=== PATIENT | female | born 1980 | race Caucasian/White ===

== ENCOUNTER → 2016-08-25 | Outpatient (CLI) | payer BC | LOC: LAB 13:13 | PROVIDERS: ATTEND Obstetrics & Gynecology | DX: O20.9 Hemorrhage in early pregnancy, unspecified (principal) | CPT/HCPCS: 36415; 84702 ==

== ENCOUNTER → 2016-09-29 | Outpatient (CLI) | payer BC | LOC: LAB 10:01 | PROVIDERS: ATTEND Obstetrics & Gynecology | DX: Z32.01 Encounter for pregnancy test, result positive (principal); Z87.59 Personal history of other complications of pregnancy, childbirth and the puerperium | CPT/HCPCS: 36415; 84702 ==

== ENCOUNTER → 2017-01-15 | Outpatient (CLI) | payer BC ==
--- NOTE | 2017-01-15 12:01 | Diagnostic Imaging Report ---
INDICATION: Size and dates. TECHNIQUE: Multiple real-time grayscale images were obtained over the gravid uterus. COMPARISON: None. FINDINGS: There is a single living intrauterine in variable presentation. There is normal volume of amniotic fluid. Placenta is fundal. There is no previa. The anatomical survey is unremarkable. The heart rate is 140 beats per minute and regular. Cervical length is 5.7 cm. The biometry correlates with a gestational age of 21 weeks 2 days. IMPRESSION: Single living intrauterine with sonographically estimated gestational age of 21 weeks 2 days and an estimated date of confinement of 05/26/2017. Biometrical measurements are as follows: Biparietal 5.06 cm, age 21 weeks 3 days. Head circumference 18.69 cm, age 21 weeks 1 days. Abdominal circumference 16.43 cm, age 21 weeks 4 days. Femur length 3.36 cm, age 20 weeks 4 days. Sonographic estimate age: 21 weeks 2 days. Sonographic estimated date of delivery: 05/26/2017. Estimated Weight: 396 gm (+/- 58 gm). LMP percentile: 94%. heart rate: 140 beats per minute. number: 1 of 1. Dictated by: Dictated on workstation # [id number]
== END ==
LOC: RAD 10:24
PROVIDERS: ATTEND Obstetrics & Gynecology
DX: Z36 Encounter for antenatal screening of mother (principal); Z3A.21 21 weeks gestation of pregnancy
CPT/HCPCS: 76805

== ENCOUNTER 2017-06-02 19:00 | Inpatient (IN) | payer BC ==
[~2017-06-02] VITALS: Ht 162.6 cm; Wt 87.1 kg
--- OUTSIDE RECORDS SUMMARY | 2017-06-02 19:40 | XMS REPORT | Continuity of Care Document ---
Author Author [facility] Organization [facility] Address Unknown Phone Unavailable Allergies Active Description Code Type Severity Reaction Onset Reported/Identified Relationship to Patient Clinical Status Yes No Allergy Information Available [id number] Drug Allergy Unknown N/A 2014 Medications There is no data. Problems Date Dx Coded Attending Type Code Diagnosis Diagnosed By 09/28/2014 Ot 527.5 11/05/2014 YON REYES DO Ot 789.34 08/25/2016 YON REYES DO Ot 789.34 ABDOMINAL/PELVIC SWELLING,MASS/LUMP,LFT 08/25/2016 YON REYES DO Ot 789.34 ABDOMINAL/PELVIC SWELLING,MASS/LUMP,LFT 08/29/2016 FENECH DO, NOHELIA S Ot O20.9 HEMORRHAGE IN EARLY , UNSPECIFI 09/07/2016 FENECH DO, NOHELIA S Ot O20.9 HEMORRHAGE IN EARLY , UNSPECIFI 10/01/2016 FENECH DO, NOHELIA S Ot Z32.01 ENCOUNTER FOR TEST, RESULT POS 10/01/2016 FENECH DO, NOHELIA S Ot Z87.59 PERSONAL HISTORY OF COMP OF PREG, CHLDBR 10/04/2016 FENECH DO, NOHELIA S Ot Z32.01 ENCOUNTER FOR TEST, RESULT POS 10/04/2016 FENECH DO, NOHELIA S Ot Z87.59 PERSONAL HISTORY OF COMP OF PREG, CHLDBR 10/05/2016 FENECH DO, NOHELIA S Ot Z32.01 ENCOUNTER FOR TEST, RESULT POS 10/05/2016 FENECH DO, NOHELIA S Ot Z87.59 PERSONAL HISTORY OF COMP OF PREG, CHLDBR 10/16/2016 FENECH DO, NOHELIA S Ot Z32.01 ENCOUNTER FOR TEST, RESULT POS 10/16/2016 FENECH DO, NOHELIA S Ot Z87.59 PERSONAL HISTORY OF COMP OF PREG, CHLDBR 01/11/2017 RONEL REYES DONT L Ot 789.34 ABDOMINAL/PELVIC SWELLING,MASS/LUMP,LFT 01/11/2017 NOHELIA HENAO DO Ot O20.9 HEMORRHAGE IN EARLY , UNSPECIFI 01/11/2017 JULIANO BYRD, NOHELIA Benton Ot Z32.01 ENCOUNTER FOR TEST, RESULT POS 01/11/2017 JULIANO BYRD, NOHELIA Benton Ot Z87.59 PERSONAL HISTORY OF COMP OF PREG, CHLDBR 01/15/2017 YON REYES DO Ot 789.34 ABDOMINAL/PELVIC SWELLING,MASS/LUMP,LFT 01/15/2017 NOHELIA HENAO DO Ot O20.9 HEMORRHAGE IN EARLY , UNSPECIFI 01/15/2017 JULIANO BYRD, NOHELIA Benton Ot Z32.01 ENCOUNTER FOR TEST, RESULT POS 01/15/2017 NOHELIA HENAO DO Ot Z87.59 PERSONAL HISTORY OF COMP OF PREG, CHLDBR 01/16/2017 JULIANO BYRD, NOHELIA S Ot Z36 ENCOUNTER FOR SCREENING OF MOT 01/16/2017 NOHELIA HENAO DO Ot Z3A.21 21 WEEKS GESTATION OF 01/23/2017 JULIANO BYRD NOHELIA S Ot Z36 ENCOUNTER FOR SCREENING OF MOT 01/23/2017 JULIANO DO, NOHELIA Benton Ot Z3A.21 21 WEEKS GESTATION OF 01/30/2017 JULIANO BYRD, NOHELIA S Ot Z36 ENCOUNTER FOR SCREENING OF MOT 01/30/2017 JULIANO BYRD, NOHELIA Benton Ot Z3A.21 21 WEEKS GESTATION OF Procedures There is no data. Results Test Result Range Serum or plasma choriogonadotropin measurement (units/volume) - 09/29/16 10:14 Serum or plasma choriogonadotropin measurement (units/volume) 805 m[ iU]/mL <5 Encounters ACCT No. Visit Date/Time Discharge Status Pt. Type Provider Facility Loc./Unit Complaint [id number] 01/15/2017 10:24:00 01/15/2017 23:59:59 CLS Outpatient NOHELIA HENAO DO [facility] RAD ANATOMY SCAN [id number] 09/29/2016 10:01:00 09/29/2016 23:59:59 CLS Outpatient JULIANO BYRD NOHELIA Benton [facility] LAB POSITIVE PREGNANCE TEST, MISCARRIAGE WITHIN YR [id number] 08/25/2016 13:13:00 08/25/2016 23:59:59 CLS Outpatient JULIANO BYRD NOHELIA Benton [facility] LAB BLEEDING IN EARLY [id number] 09/28/2014 14:30:00 09/28/2014 23:59:59 CLS Outpatient YON REYES DO [facility] RAD MASS LT LOWER ABD [id number] 06/02/2017 19:25:00 ACT Inpatient NOHELIA HENAO DO [facility] LDRP INDUCTION [id number] 09/28/2014 14:49:00 Document Registration [id number] 09/28/2014 14:49:00 Document Registration [id number] 10/13/2010 10:01:00 Document Registration
[2017-06-02 19:42] VITALS: BP 132/84
[2017-06-02] MEDS ORDERED: LACTATED RINGERS 1,000 ML IV SCH (20:44)
[2017-06-02] MEDS ORDERED: TERBUTALINE INJ 1 MG/ML (BRETHINE) AMP SC PRN (20:45)
[2017-06-02] MEDS ORDERED: MISOPROSTOL 100 MCG (CYTOTEC) TAB PO ONE (20:45)
[2017-06-02] MEDS: D5 LR IV SOLUTION 1,000 ML IV SCH (20:53)
[2017-06-02 20:55] LABS: BASOPHILS % (AUTO) 0 % (0-10); EOSINOPHILS % (AUTO) 0 % (0-10); HEMATOCRIT 33 % (35-52); HEMOGLOBIN 11.3 G/DL (11.5-16.0); LYMPHOCYTES # (AUTO) 1.6 X 10^3 (1.0-4.0); LYMPHOCYTES % (AUTO) 18 % (12-44); MEAN CORPUSCULAR HEMOGLOBIN 33 PG (25-34); MEAN CORPUSCULAR HGB CONC 34 G/DL (32-36); MEAN CORPUSCULAR VOLUME 98 FL (80-99); MEAN PLATELET VOLUME 11.3 FL (7.4-10.4); MONOCYTES # (AUTO) 0.6 X 10^3 (0.0-1.0); MONOCYTES % (AUTO) 7 % (0-12); NEUTROPHILS # (AUTO) 6.7 X 10^3 (1.8-7.8); NEUTROPHILS % (AUTO) 75 % (42-75); PLATELET COUNT 249 10^3/uL (130-400); RED BLOOD COUNT 3.39 10^6/uL (4.35-5.85); RED CELL DISTRIBUTION WIDTH 13.3 % (10.0-14.5); WHITE BLOOD COUNT 8.9 10^3/uL (4.3-11.0)
[2017-06-02] MEDS ORDERED: HYDROmorphone (DILAUDID) 2 MG/ML VIAL IVP ONE (21:00)
[2017-06-02 21:04] VITALS: BP 116/71
[2017-06-02 21:34] VITALS: BP 124/75
[2017-06-02 22:04] VITALS: BP 107/64
[2017-06-02 22:27] VITALS: BP 118/77
[2017-06-02] MEDS ORDERED: AMPICILLIN INJECTION 2,000 MG in NS (IVPB) 50 ML IV SCH (23:14)
[2017-06-02] MEDS ORDERED: AMPICILLIN 2000 MG INJECTION (IM/IV) ONE (23:19)
[2017-06-02] MEDS ORDERED: NS (IVPB) 50 ML ONE (23:20)
[2017-06-02 23:27] VITALS: BP 125/78
[2017-06-02] MEDS ORDERED: ACETAMINOPHEN 500 MG TAB (TYLENOL) PO PRN (23:30)
[2017-06-02] MEDS ORDERED: FERR-84 PO (23:57)
[2017-06-02] MEDS ORDERED: PREN-142 PO (23:57)
[2017-06-03] VITALS (52 sets, daily range): BP systolic 95–139; BP diastolic 51–86
[2017-06-03] MEDS ORDERED: MISOPROSTOL 100 MCG (CYTOTEC) TAB PO SCH (00:45)
[2017-06-03] MEDS: CATHETER FLUSH 10 ML SYR IV SCH ×3 (03:28→22:11)
[2017-06-03] MEDS: AMPICILLIN INJECTION 1,000 MG in NS (IVPB) 50 ML IV SCH ×4 (03:32→15:27)
[2017-06-03] MEDS: D5 LR IV SOLUTION 1,000 ML IV SCH ×2 (05:53→14:57)
[2017-06-03] MEDS ORDERED: OXYTOCIN/NORMAL SALINE 500 ML IV SCH (07:30)
[2017-06-03] MEDS ORDERED: SUFENTA 0.6MCG/ML BUPIVA 0.125 100 ML ONE (08:19)
--- NOTE | 2017-06-03 08:34 | History & Physical-OB ---
OB - Chief Complaint & HPI Date/Time Date of Admission: Date of Admission: Jun 02, 2017 at 7:25 pm Time Seen by Provider: 08:25 Chief Complaint/History OB-Reason for Admission/Chief: Induction of Labor Hx : 2 Hx Para: 0 Expected Date of Delivery: Jun 04, 2017 Gestational Age in Weeks: 39 Gestational Age in Days: 5 Other reason for admission: Induction of labor at <40 weeks due to AMA Admission Nurse Assessment Rev: Yes History of Labs A pos Antibody neg RI RPR NR HBsAg NR HIV NR GC neg GBS urine culture + in 1st trimester Allergies and Home Medications Allergies Coded Allergies: No Allergy Information Available (Unverified , 09/28/14) Home Medications Ferrous Sulfate 325 Mg Tablet, 325 MG PO DAILY, (Reported) Vit No.124/Iron/FA 1 Each Tablet, 1 EACH PO DAILY, (Reported) OB - History Hx of Present Care: Yes Ultrasounds: Normal mid trimester US Obstetrical Complications: None Medical Complications: None Other Concerns: AMA Patient Past Medical History n/a Social History/Family History Recent Infectious Disease Expo: No Alcohol Use: Denies Use Recreational Drug Use: No Immunizations Date of Influenza Vaccine: Mar 26, 2017 OB - Admission Exam Physical Exam Vitals: Vital Signs 06/03/17 07:30 Temp 97.6 Pulse 79 Resp 18 B/P (MAP) 122/66 (84) O2 Delivery Room Air HEENT: NCAT Heart: Rhythm Normal Lungs: Clear Abdomen: Gravid Extremities: Normal Reflexes: Normal Cervical Dilatation: 1cm Effacement: 75% Station: -1 Membranes: Intact Heart Rate: 130's Accelerations: Accelerations Present Decelerations: No Decelerations Short Term Variability: Present Half-Way Variability: Average (6-25) Contractions on Admission: < 5 Minutes Apart Intensity: Moderate Stevens Scoring Tool (Modified) Dilation (cm): 1-2cm (1) Effacement (%): 51-79% (2) Descent/Station: -1,0 (2) Cervix Consistency: Soft (2) Cervix Position: Anterior (2) Subtract 1 point for: Nulliparity (-1) Stevens Score: 8 Labs Laboratory Tests Test 06/02/17 19:50 Range/Units White Blood Count 8.9 4.3-11.0 10^3/uL Red Blood Count 3.39 L 4.35-5.85 10^6/uL Hemoglobin 11.3 L 11.5-16.0 G/DL Hematocrit 33 L 35-52 % Mean Corpuscular Volume 98 80-99 FL Mean Corpuscular Hemoglobin 33 25-34 PG Mean Corpuscular Hemoglobin Concent 34 32-36 G/DL Red Cell Distribution Width 13.3 10.0-14.5 % Platelet Count 249 130-400 10^3/uL Mean Platelet Volume 11.3 H 7.4-10.4 FL Neutrophils (%) (Auto) 75 42-75 % Lymphocytes (%) (Auto) 18 12-44 % Monocytes (%) (Auto) 7 0-12 % Eosinophils (%) (Auto) 0 0-10 % Basophils (%) (Auto) 0 0-10 % Neutrophils # (Auto) 6.7 1.8-7.8 X 10^3 Lymphocytes # (Auto) 1.6 1.0-4.0 X 10^3 Monocytes # (Auto) 0.6 0.0-1.0 X 10^3 Eosinophils # (Auto) 0.0 0.0-0.3 10^3/uL Basophils # (Auto) 0.0 0.0-0.1 10^3/uL OB - Assessment/Plan/Diagnosis Assessment Assessment: induction of labor Plan Plan: Induction Induction Method: per Misoprostol Protocol Discharge Diagnosis Diagnosis: 36 you @ 39.5 GBS + urine culture NOHELIA DESIR DO Jun 03, 2017 8:34 am
[2017-06-03] MEDS: LACTATED RINGERS 1,000 ML IV SCH ×2 (09:00→18:12)
[2017-06-03] MEDS: EPIDURAL (SUFENTA 0.6MCG/ML BUPIVA 0.125%) 100 ML BAG EPI SCH ×2 (09:36→16:20)
[2017-06-03] MEDS ORDERED: diphenhydrAMINE 50 MG/ML INJ (BENADRYL) IV PRN (09:45)
[2017-06-03] MEDS ORDERED: ONDANSETRON 4 MG/2 ML (SDV) Z0FRAN IV PRN (09:45)
[2017-06-03] MEDS ORDERED: METOCLOPRAMIDE INJ 10 MG/2 ML (REGLAN) IV PRN (09:45)
[2017-06-03] MEDS ORDERED: NALOXONE 0.4 MG/ML 1 ML (NARCAN) VIAL IV PRN ×2 (09:45)
[2017-06-03] MEDS ORDERED: CITRIC ACID/SOB CIT (BICITRA) 30 ML UDC PO ONE (18:00)
[2017-06-03] MEDS ORDERED: METOCLOPRAMIDE INJ 10 MG/2 ML (REGLAN) IVP ONE (18:00)
[2017-06-03] MEDS ORDERED: ceFAZolin INJECTION 1,000 MG in NS (IVPB) 50 ML IV ONE (18:00)
[2017-06-03] MEDS ORDERED: FAMOTIDINE 20MG/2ML IV (PEPCID) IVP ONE (18:00)
[2017-06-03] MEDS ORDERED: LIDOCAINE PF 2% 5 ML (XYLOCAINE) VIAL ONE ×2 (18:04→18:14)
--- NOTE | 2017-06-03 18:07 | Progress Note-Standard ---
Standard Progress Note Progress Notes/Assess & Plan Date Seen by Provider: Jun 03, 2017 Time Seen by Provider: 17:20 Progress/Assessment & Plan this 36-year-old 's 39 weeks and 6 days gestation and was admitted last evening for induction of labor. She received Cytotec overnight and had a regular contraction pattern this morning when artificial rupture membranes was performed and clear fluid was noted. Pitocin was used to augment her contraction pattern and achieve an adequate contraction pattern with was noted throughout the day with adequate change in the cervix. She progressed to a 9 cm dilation which was documented at 4 o'clock this afternoon. The anterior lip was reducible however position was noted to be right occiput transverse. I decided to allow the patient delivered out for the next 2 hours at which point there was significant change in her exam and swelling of the cervix to change my assessment of the dilation to 8-9 cm. station remained 0 to -1 , a large caput was starting to develop. baseline on the fetus had changed since my last evaluation as well to 150s to 160s with minimal to moderate variability. There were no accelerations noted occasional variable decelerations. Due to suspicion for cephalopelvic disproportion and failure to progress in dilatation recommendation was made to proceed with delivery. Risk of the procedure was discussed the patient in detail including risk of bleeding need for blood transfusion risk of anesthesia risk of infection , all questions were answered with her and her present and consent was obtained and we will proceed at next earliest convenience. NOHELIA HENAO DO Jun 03, 2017 6:07 pm
--- NOTE | 2017-06-03 18:08 | Discharge Inst-Women's Service ---
Discharge Inst-Women's Serv Depart Medication/Instructions New, Converted or Re-Newed RX: RX on Chart Consults/Follow Up Additional Follow Up: Yes Orders/Referrals Dr. Leal in 7-10 days and in 6 weeks Activity Activity: Activity as Tolerated Driving Instructions: No Driving for 1 Week NO SMOKING: NO SMOKING Nothing Inside Vagina: No Douching, No [place], No Tampons Diet Discharge Diet: No Restrictions Symptoms to Report to : Bleeding Excessive, Pain Increased, Fever Over 101 Degrees F, Vaginal Bleeding Increase, Questions/Concerns For Any Problems or Questions: Contact Your Physician Skin/Wound Care Infection Signs and Symptoms: Increased Redness, Foul Odor of Wound, Increased Drainage, Skin Itchy or Has a Rash, Increased Swelling, Temperature Above 101 F Operative Area Clean and Dry: Keep Incision Clean/Dry Stitches/[place]/Dermabond: Dermabond, Care of Stitches Bathing Instructions: NOHELIA Romano DO Jun 03, 2017 6:08 pm
[2017-06-03] MEDS ORDERED: fentaNYL INJECTION 100 MCG/2 ML AMP ONE (18:14)
[2017-06-03] MEDS ORDERED: MEASLES,MUMPS,RUBELLA 1 EA INJ SC SCH (18:15)
[2017-06-03] MEDS ORDERED: ONDANSETRON 4 MG/2 ML (SDV) Z0FRAN IVP PRN (18:15)
[2017-06-03] MEDS ORDERED: HYDROmorphone (DILAUDID) 2 MG/ML VIAL IVP PRN (18:15)
[2017-06-03] MEDS ORDERED: TETANUS,DIPTH,PERTUSS P/F (BOOSTRIX) 0.5 ML VIAL IM SCH (18:15)
[2017-06-03] MEDS ORDERED: KETAMINE HCL 100 MG/ML 5 ML VIAL ONE (18:16)
[2017-06-03] MEDS ORDERED: BUPIVACAINE 0.25% 30 ML (SENSORCAINE) VIAL ONE (19:23)
[2017-06-03] MEDS ORDERED: OXYTOCIN/NORMAL SALINE 1,000 ML IV ONE (19:24)
[2017-06-03] MEDS ORDERED: KETOROLAC 30 MG/ML VIAL ONE (19:25)
[2017-06-03] MEDS: OXYTOCIN/NORMAL SALINE 500 ML IV SCH (20:57)
[2017-06-03] MEDS: KETOROLAC 30 MG/ML VIAL IVP SCH (21:12)
[2017-06-03] MEDS: DOCUSATE SODIUM 100 MG (COLACE) CAP PO SCH (21:23)
[2017-06-04 00:28] VITALS: BP 119/74
[2017-06-04] MEDS: OXYTOCIN/NORMAL SALINE 500 ML IV SCH (00:28)
[2017-06-04] MEDS: CATHETER FLUSH 10 ML SYR IV SCH ×3 (02:15→17:36)
[2017-06-04] MEDS: KETOROLAC 30 MG/ML VIAL IVP SCH ×3 (02:15→17:36)
[2017-06-04 04:27] VITALS: BP 120/72
--- NOTE | 2017-06-04 05:06 | OPERATIVE REPORT ---
DATE OF SERVICE: PREOPERATIVE DIAGNOSES: 1. A 36-year-old G2, P0 at 39 weeks gestation. 2. Cephalopelvic disproportion and failure to progress. POSTOPERATIVE DIAGNOSES: 1. A 36-year-old G2, P0 at 39 weeks gestation. 2. Cephalopelvic disproportion and failure to progress. PROCEDURE: Primary low transverse section. SURGEON: Alber Leal DO. SUPERVISOR COFFEE: GEORGINA Billingsley. ANESTHESIA: Epidural, which was bolused. ESTIMATED BLOOD LOSS: One liter. FLUIDS: 1300 mL of lactated Ringer solution. Findings: Live male weight 9lbs 6oz, APGARs 1/6 Grossly normal bilateral fallopian tubes and ovaries. SPECIMEN SENT: Placenta. INDICATION FOR PROCEDURE: This patient was admitted last evening for induction of labor and received cervical ripening overnight in the form of oral misoprostol. She underwent artificial rupture of membranes early this morning at 8 a.m. and Pitocin was used to augment her labor and achieve an adequate contraction pattern. She progressed to an 8 to 9 cm dilatation at which point cervical swelling began to develop as well as a large caput. Due to suspicion for cephalopelvic disproportion and a macrosomic infant, I discussed with the patient proceeding with primary . Risks of procedure were discussed with the patient in detail with her present. Risk of bleeding, infection, damaging surrounding structures including, but not limited to bowel, bladder, ureter, kidney, need for blood transfusion, risk of anesthesia and even were all discussed with the patient. After all of her questions were answered, consent was obtained and the patient was taken to the operating room. OPERATIVE REPORT IN DETAIL: Once in the operating room, epidural anesthesia was bolused and found to be adequate. She was placed in supine position with leftward tilt, prepped and draped in normal sterile fashion and a timeout was performed. A Pfannenstiel skin incision was then made with a knife and carried down the underlying fascia using Bovie cautery. Fascial incision was extended laterally using Bovie cautery. Superior aspect of the fascial incision was then grasped with Micki clamps, tented upward and dissected off the underlying rectus muscles. The inferior aspect of the fascial incision was then grasped with Micki clamps, tented upward and dissected off the underlying rectus muscles. The rectus muscles were then dissected down the midline using Metzenbaum scissors, which exposed the peritoneum, which entered bluntly and extended using blunt traction. An Marlo ring retractor was placed in the peritoneal incision, which offered excellent lateral sidewall retraction. I then identified the lower uterine segment, which was found to be thinned down. I made a low transverse incision through the vesicouterine peritoneum and bluntly dissected off the lower uterine segment creating a bladder flap. I then make my myotomy using the knife until membranes were visualized, at which point I extended the uterine incision laterally and superiorly using bandage scissors and clear fluid is noted at the time of rupture that occurs during this process. The was found in the vertex presentation. I elevated the infant's head up to the incision where gentle fundal pressure was used to deliver the 's head through the incision. The nares and oropharynx were bulb suctioned using the bulb. I then reduced the nuchal cord x1. Anterior and posterior shoulders were delivered. The infant was then brought out onto the operative field where the cord was duly clamped and cut and infant was handed off to waiting pediatric nurses in attendance. Cord blood was collected. A 3-vessel cord with intact placenta was delivered spontaneously after IV Pitocin was administered to facilitate uterine contraction. Uterine fundus became firmer with bimanual massage. Uterus was then exteriorized and cleared of all endometrial clots and debris. I then proceeded to close the uterine incision using 0 Vicryl suture in a running locking fashion. When I do so there is an extension noted of the left apex of the incision, which extended into a portion of the uterine artery. I performed uterine artery ligation around this avulsion of the uterine artery using 2-0 Vicryl suture in a [id number] fashion. Three separate ligation sutures were placed over this, which stabilized the bleeding and hematoma formation in this area. After it was noted to be stabilized, I proceeded with placing a second layer of imbricating 0 Monocryl and excellent hemostasis was noted after doing this. I then placed the uterus back within the pelvis and copiously irrigated the pelvis using normal saline. Once again, no active bleeding was noted from any of my dissection planes. I then placed Surgicel over the area where the uterine artery was ligated to ensure excellent hemostasis postoperatively. I also placed Interceed antiadhesive over my low transverse incision to prevent postoperative adhesion formation. I then closed the peritoneum using 3-0 Vicryl suture in running fashion. The rectus muscles were reapproximated using 3-0 Vicryl suture in an interrupted fashion. Fascia reapproximated using 0 Vicryl suture in running fashion. Subcutaneous tissue was reapproximated using 3-0 plain interrupted subcutaneous stitch and skin reapproximated using 4-0 Monocryl in a running subcuticular. Dermabond was applied to incision. A sterile dressing was adhesed with white tape. One gram of Ancef was given preoperatively for infection prophylaxis. The patient tolerated the procedure well and sent to recovery area in stable condition. Lap and sponge counts were at the end of procedure. Instrument counts are correct as well. Job ID: [id number] DocumentID: [id number] Dictated Date: 06/03/2017 19:32:07 Cut Off Operator Scorer Date: 06/04/2017 04:11:22 Dictated By: DO JC RACHEL
[2017-06-04 05:25] LABS: BASOPHILS % (AUTO) 0 % (0-10); EOSINOPHILS % (AUTO) 0 % (0-10); HEMATOCRIT 26 % (35-52); HEMOGLOBIN 8.6 G/DL (11.5-16.0); LYMPHOCYTES # (AUTO) 1.8 X 10^3 (1.0-4.0); LYMPHOCYTES % (AUTO) 11 % (12-44); MEAN CORPUSCULAR HEMOGLOBIN 33 PG (25-34); MEAN CORPUSCULAR HGB CONC 34 G/DL (32-36); MEAN CORPUSCULAR VOLUME 99 FL (80-99); MEAN PLATELET VOLUME 10.7 FL (7.4-10.4); MONOCYTES # (AUTO) 0.9 X 10^3 (0.0-1.0); MONOCYTES % (AUTO) 6 % (0-12); NEUTROPHILS # (AUTO) 13.7 X 10^3 (1.8-7.8); NEUTROPHILS % (AUTO) 83 % (42-75); PLATELET COUNT 186 10^3/uL (130-400); RED BLOOD COUNT 2.58 10^6/uL (4.35-5.85); RED CELL DISTRIBUTION WIDTH 13.2 % (10.0-14.5); WHITE BLOOD COUNT 16.5 10^3/uL (4.3-11.0)
[2017-06-04 08:00] VITALS: BP 119/72
[2017-06-04] MEDS: DOCUSATE SODIUM 100 MG (COLACE) CAP PO SCH ×2 (08:01→22:34)
[2017-06-04] MEDS: HYDROcodone/APAP 5 MG/325 MG (LORTAB) TAB PO PRN ×3 (08:01→23:06)
[2017-06-04] MEDS ORDERED: ceFAZolin INJECTION 1,000 MG in NS (IVPB) 50 ML IV ONE (08:30)
[2017-06-04] MEDS ORDERED: IBUP-1773 PO (08:45)
[2017-06-04] MEDS ORDERED: FERR325T18 PO (08:45)
[2017-06-04] MEDS ORDERED: DOCU100C37 PO (08:45)
[2017-06-04] MEDS ORDERED: ACHD5005 PO (08:45)
--- NOTE | 2017-06-04 08:49 | Progress Note-Standard ---
Standard Progress Note Progress Notes/Assess & Plan Date Seen by Provider: Jun 04, 2017 Time Seen by Provider: 08:30 Progress/Assessment & Plan Patient is POD 1 PLTCS. Reports that pain is somewhat controlled. Lochia is minimal. Rivera cath out this morning. Vital Sign - Last 24 Hours 06/03/17 06/03/17 06/03/17 06/03/17 09:00 09:10 09:30 09:37 Pulse 83 80 88 85 Resp 18 B/P (MAP) 133/86 (102) 126/74 (91) 129/63 (85) 138/66 (90) Pulse Ox 100 99 O2 Delivery Room Air Room Air Room Air Room Air 06/03/17 06/03/17 06/03/17 06/03/17 09:40 09:43 09:46 09:50 Pulse 78 75 83 76 B/P (MAP) 129/62 (84) 125/61 (82) 134/62 (86) 122/64 (83) Pulse Ox 99 O2 Delivery Room Air Room Air Room Air Room Air 06/03/17 06/03/17 06/03/17 06/03/17 09:55 10:00 10:05 10:10 Pulse 80 67 71 72 B/P (MAP) 130/79 (96) 123/65 (84) 127/63 (84) 120/69 (86) O2 Delivery Room Air Room Air Room Air Room Air 06/03/17 06/03/17 06/03/17 06/03/17 10:20 10:25 10:30 10:45 Temp 97.5 Pulse 71 69 68 69 B/P (MAP) 118/58 (78) 108/62 (77) 101/51 (68) 97/53 (68) O2 Delivery Room Air Room Air Room Air Room Air 06/03/17 06/03/17 06/03/17 06/03/17 11:00 11:15 11:30 11:45 Pulse 72 72 76 83 B/P (MAP) 123/75 (91) 124/64 (84) 125/72 (89) 113/77 (89) O2 Delivery Room Air Room Air Room Air Room Air 06/03/17 06/03/17 06/03/17 06/03/17 12:00 12:15 12:30 12:45 Temp 97.6 Pulse 74 78 70 72 B/P (MAP) 123/71 (88) 107/68 (81) 112/72 (85) 115/68 (84) O2 Delivery Room Air Room Air Room Air Room Air 06/03/17 06/03/17 06/03/17 06/03/17 13:00 13:15 13:30 13:45 Temp 97.2 Pulse 74 76 73 71 B/P (MAP) 116/59 (78) 120/67 (84) 124/71 (88) 122/70 (87) O2 Delivery Room Air Room Air Room Air Room Air 06/03/17 06/03/17 06/03/17 06/03/17 14:00 14:15 14:30 14:45 Pulse 75 80 75 73 B/P (MAP) 117/69 (85) 120/74 (89) 110/56 (74) 101/60 (74) O2 Delivery Room Air Room Air Room Air Room Air 06/03/17 06/03/17 06/03/17 06/03/17 15:00 15:15 15:30 15:45 Temp 98.2 Pulse 74 71 78 71 Resp 16 B/P (MAP) 109/57 (74) 95/56 (69) 137/79 (98) 131/81 (98) O2 Delivery Room Air Room Air Room Air Room Air 06/03/17 06/03/17 06/03/17 06/03/17 16:00 16:15 16:30 16:45 Pulse 67 72 85 81 Resp 16 B/P (MAP) 138/79 (98) 132/74 (93) 135/81 (99) 134/74 (94) O2 Delivery Room Air Room Air Room Air Room Air 06/03/17 06/03/17 06/03/17 06/03/17 17:00 17:15 17:30 17:45 Temp 98.1 Pulse 93 86 77 86 Resp 18 B/P (MAP) 128/80 (96) 119/81 (94) 127/70 (89) 129/78 (95) O2 Delivery Room Air Room Air Room Air Room Air 06/03/17 06/03/17 06/03/17 06/03/17 18:00 18:15 21:14 22:32 Temp 98.8 98.4 Pulse 77 84 82 87 Resp 14 16 B/P (MAP) 112/56 (74) 139/78 (98) 113/75 (88) 115/68 (84) Pulse Ox 96 98 O2 Delivery Room Air Room Air Room Air 06/04/17 06/04/17 06/04/17 00:28 04:27 08:00 Temp 98.7 98.2 100.0 Pulse 92 81 104 Resp B/P (MAP) 119/74 (89) 120/72 (88) 119/72 (88) Pulse Ox 98 95 98 O2 Delivery Room Air Room Air Room Air Intake and Output 06/03/17 06/03/17 06/04/17 15:00 23:00 07:00 Intake Total 2150 ml 1950 ml 1400 ml Output Total 700 ml 950 ml Balance 2150 ml 1250 ml 450 ml Incision: c/d/i Laboratory Tests Test 06/04/17 05:10 Range/Units White Blood Count 16.5 H 4.3-11.0 10^3/uL Red Blood Count 2.58 L 4.35-5.85 10^6/uL Hemoglobin 8.6 #L 11.5-16.0 G/DL Hematocrit 26 L 35-52 % Mean Corpuscular Volume 99 80-99 FL Mean Corpuscular Hemoglobin 33 25-34 PG Mean Corpuscular Hemoglobin Concent 34 32-36 G/DL Red Cell Distribution Width 13.2 10.0-14.5 % Platelet Count 186 130-400 10^3/uL Mean Platelet Volume 10.7 H 7.4-10.4 FL Neutrophils (%) (Auto) 83 H 42-75 % Lymphocytes (%) (Auto) 11 L 12-44 % Monocytes (%) (Auto) 6 0-12 % Eosinophils (%) (Auto) 0 0-10 % Basophils (%) (Auto) 0 0-10 % Neutrophils # (Auto) 13.7 H 1.8-7.8 X 10^3 Lymphocytes # (Auto) 1.8 1.0-4.0 X 10^3 Monocytes # (Auto) 0.9 0.0-1.0 X 10^3 Eosinophils # (Auto) 0.0 0.0-0.3 10^3/uL Basophils # (Auto) 0.0 0.0-0.1 10^3/uL Diagnosis: POD 1 PTLCS Acute blood loss anemia Leukocytosis P: Due to drop in Hgb as well as elevation in WBC, and EBL of 1000 second dose of Ancef ordered this AM Continue routine PO care Replace iron Encourage ambulation and breast feeding. NOHELIA HENAO DO Jun 04, 2017 8:49 am
[2017-06-04] MEDS ORDERED: NS (IVPB) 50 ML ONE (11:35)
[2017-06-04] MEDS ORDERED: ceFAZolin 1,000 MG (ANCEF) VIAL ONE (11:35)
[2017-06-04 12:56] VITALS: BP 104/71
--- NOTE | 2017-06-04 12:57 | Anesthesia-Regional Post-Op ---
Regional Patient Condition Mental Status: Alert, Oriented x3 Circulation: Same as Pre-Op Headache: Absent Sensation: Full Recovery Motor Block: Absent Post Op Complications Complications None Follow Up Care/Instructions Patient Instructions None needed. Anesthesia/Patient Condition Patient is doing well, no complaints, stable vital signs, no apparent adverse anesthesia problems. No complications reported per nursing. DAISHA BROWN CRNA Jun 04, 2017 12:57
[2017-06-04] MEDS ORDERED: KETOROLAC 30 MG/ML VIAL ONE (17:05)
[2017-06-04 17:51] VITALS: BP 135/86
[2017-06-04] MEDS: IBUPROFEN 600 MG (MOTRIN) TAB PO SCH (18:03)
[2017-06-05 01:00] VITALS: BP 117/67
[2017-06-05] MEDS: IBUPROFEN 600 MG (MOTRIN) TAB PO SCH ×4 (01:15→18:00)
[2017-06-05] MEDS: HYDROcodone/APAP 5 MG/325 MG (LORTAB) TAB PO PRN ×3 (03:06→18:47)
[2017-06-05 06:01] LABS: BASOPHILS % (AUTO) 0 % (0-10); EOSINOPHILS % (AUTO) 0 % (0-10); HEMATOCRIT 23 % (35-52); HEMOGLOBIN 7.7 G/DL (11.5-16.0); LYMPHOCYTES # (AUTO) 1.8 X 10^3 (1.0-4.0); LYMPHOCYTES % (AUTO) 15 % (12-44); MEAN CORPUSCULAR HEMOGLOBIN 34 PG (25-34); MEAN CORPUSCULAR HGB CONC 33 G/DL (32-36); MEAN CORPUSCULAR VOLUME 101 FL (80-99); MEAN PLATELET VOLUME 11.1 FL (7.4-10.4); MONOCYTES # (AUTO) 0.7 X 10^3 (0.0-1.0); MONOCYTES % (AUTO) 6 % (0-12); NEUTROPHILS # (AUTO) 9.6 X 10^3 (1.8-7.8); NEUTROPHILS % (AUTO) 79 % (42-75); PLATELET COUNT 197 10^3/uL (130-400); RED BLOOD COUNT 2.29 10^6/uL (4.35-5.85); RED CELL DISTRIBUTION WIDTH 13.7 % (10.0-14.5); WHITE BLOOD COUNT 12.2 10^3/uL (4.3-11.0)
[2017-06-05 06:49] VITALS: BP 107/68
[2017-06-05] MEDS: DOCUSATE SODIUM 100 MG (COLACE) CAP PO SCH (08:04)
--- NOTE | 2017-06-05 08:50 | Progress Note-Standard ---
Standard Progress Note Progress Notes/Assess & Plan Date Seen by Provider: Jun 05, 2017 Time Seen by Provider: 08:45 Progress/Assessment & Plan Patient is POD 2 PLTCS. Reports that pain is somewhat controlled. Lochia is minimal. Ambulating and voiding freely Vital Sign - Last 24 Hours 06/04/17 06/04/17 06/05/17 06/05/17 12:56 17:51 01:00 06:49 Temp 98.6 98.9 98.4 97.8 Pulse 82 91 95 89 Resp B/P (MAP) 104/71 (82) 135/86 (102) 117/67 (84) 107/68 (81) Pulse Ox 98 99 98 99 O2 Delivery Room Air Room Air Room Air Room Air Intake and Output 06/04/17 06/04/17 06/05/17 15:00 23:00 07:00 Intake Total 100 ml 1030 ml 500 ml Output Total 1325 ml 1100 ml Balance 100 ml -295 ml -600 ml Incision: c/d/i Laboratory Tests Test 06/05/17 05:10 Range/Units White Blood Count 12.2 H 4.3-11.0 10^3/uL Red Blood Count 2.29 L 4.35-5.85 10^6/uL Hemoglobin 7.7 L 11.5-16.0 G/DL Hematocrit 23 L 35-52 % Mean Corpuscular Volume 101 H 80-99 FL Mean Corpuscular Hemoglobin 34 25-34 PG Mean Corpuscular Hemoglobin Concent 33 32-36 G/DL Red Cell Distribution Width 13.7 10.0-14.5 % Platelet Count 197 130-400 10^3/uL Mean Platelet Volume 11.1 H 7.4-10.4 FL Neutrophils (%) (Auto) 79 H 42-75 % Lymphocytes (%) (Auto) 15 12-44 % Monocytes (%) (Auto) 6 0-12 % Eosinophils (%) (Auto) 0 0-10 % Basophils (%) (Auto) 0 0-10 % Neutrophils # (Auto) 9.6 H 1.8-7.8 X 10^3 Lymphocytes # (Auto) 1.8 1.0-4.0 X 10^3 Monocytes # (Auto) 0.7 0.0-1.0 X 10^3 Eosinophils # (Auto) 0.0 0.0-0.3 10^3/uL Basophils # (Auto) 0.0 0.0-0.1 10^3/uL Diagnosis: POD 2 PTLCS Acute blood loss anemia Leukocytosis-improved P: Continue routine PO care Replace iron Encourage ambulation and breast feeding. NOHELIA HENAO DO Jun 05, 2017 8:50 am
[2017-06-05 12:00] VITALS: BP 122/76
[2017-06-05 18:00] VITALS: BP 105/66
[2017-06-06] MEDS: IBUPROFEN 600 MG (MOTRIN) TAB PO SCH ×3 (00:32→18:00)
[2017-06-06 00:35] VITALS: BP 117/73
[2017-06-06] MEDS: HYDROcodone/APAP 5 MG/325 MG (LORTAB) TAB PO PRN (01:18)
[2017-06-06] MEDS: DOCUSATE SODIUM 100 MG (COLACE) CAP PO SCH ×2 (01:20→08:42)
[2017-06-06 05:53] VITALS: BP 97/62
[2017-06-06 08:42] VITALS: BP 113/70
[2017-06-06] MEDS ORDERED: SERTRALINE 50 MG (ZOLOFT) TABLET PO NR (13:00)
[2017-06-06] MEDS ORDERED: SERT50TA9 PO (13:05)
--- NOTE | 2017-06-06 13:08 | Progress Note-Standard ---
Standard Progress Note Progress Notes/Assess & Plan Date Seen by Provider: Jun 06, 2017 Time Seen by Provider: 13:05 Progress/Assessment & Plan Patient is POD 3 PLTCS. Reports that pain is somewhat controlled. Lochia is minimal. Ambulating and voiding freely. Is very teary eyes and down when speaking with her today. She starts to cry when talking about going home with baby. Vital Sign - Last 24 Hours 06/05/17 06/06/17 06/06/17 06/06/17 18:00 00:35 05:53 08:42 Temp 98.4 98.8 98.7 98.0 Pulse 87 87 72 81 Resp B/P (MAP) 105/66 (79) 117/73 (88) 97/62 (74) 113/70 (84) Pulse Ox 98 99 98 99 O2 Delivery Room Air Room Air Room Air Room Air Intake and Output 06/05/17 06/05/17 06/06/17 15:00 23:00 07:00 Intake Total 800 ml Output Total 2200 ml Balance -1400 ml Incision: c/d/i Diagnosis: POD 3 PTLCS Acute blood loss anemia PP depression/anxiety P: Continue routine PO care Replace iron starting on zoloft 25 mg Encourage ambulation and breast feeding. anticipate dc later today NOHELIA HENAO DO Jun 06, 2017 1:08 pm
[2017-06-06 13:20] VITALS: BP 135/80
== END 2017-06-06 18:10 | disposition home or self-care (01) | DRG 765 ==
LOC: LDRP 19:25
PROVIDERS: ADMIT Obstetrics & Gynecology; ATTEND Obstetrics & Gynecology
PROC: 3E0P7GC Introduction of Other Therapeutic Substance into Female Reproductive, Via Natural or Artificial Opening (ICD-10-PCS; 2017-06-03)
PROC: 10D00Z1 Extraction of Products of Conception, Low, Open Approach (ICD-10-PCS; principal; 2017-06-03 18:35)
DX: O99.824 Streptococcus B carrier state complicating childbirth (principal); O33.9 Maternal care for disproportion, unspecified; O90.81 Anemia of the puerperium; D62 Acute posthemorrhagic anemia; O99.13 Other diseases of the blood and blood-forming organs and certain disorders involving the immune mechanism complicating the puerperium; D72.829 Elevated white blood cell count, unspecified; O99.345 Other mental disorders complicating the puerperium; F53 Mental and behavioral disorders associated with the puerperium, not elsewhere classified; Z3A.39 39 weeks gestation of pregnancy; Z37.0 Single live birth
CPT/HCPCS: 36415; 85025; 86850; 86900; 86901; 87081; 94664

== ENCOUNTER 2018-05-12 12:10 | Outpatient (CLI) | payer BC ==
[~2018-05-12] VITALS: Ht 162.6 cm; Wt 62.1 kg
[~2018-05-12 12:10] MED LIST: ACHD5005 PO; DOCU100C37 PO; FERR-84 PO; FERR325T18 PO; IBUP-1773 PO; PREN-142 PO; SERT50TA9 PO
[2018-05-14] MEDS ORDERED: HYDR-3870 PO (15:51)
== END 2018-05-12 12:33 ==
LOC: PREOP 12:10
PROVIDERS: ATTEND Otolaryngology Otolaryngology/Facial Plastic Surgery
DX: Z01.818 Encounter for other preprocedural examination (principal)

== ENCOUNTER 2018-05-14 12:01 | Day surgery (SDC) | payer BC ==
[~2018-05-14] VITALS: Ht 162.6 cm; Wt 62.1 kg
[2018-05-14 12:20] VITALS: BP 104/60
[2018-05-14] MEDS: LACTATED RINGERS 1,000 ML IV PRN ×2 (12:35→14:30)
[2018-05-14 12:47] LABS: BASOPHILS % (AUTO) 0 % (0-10); EOSINOPHILS # (AUTO) 0.1 10^3/uL (0.0-0.3); EOSINOPHILS % (AUTO) 1 % (0-10); HEMATOCRIT 34 % (35-52); HEMOGLOBIN 11.3 G/DL (11.5-16.0); LYMPHOCYTES % (AUTO) 41 % (12-44); MEAN CORPUSCULAR HGB CONC 33 G/DL (32-36); MEAN CORPUSCULAR VOLUME 95 FL (80-99); MONOCYTES # (AUTO) 0.4 X 10^3 (0.0-1.0); MONOCYTES % (AUTO) 8 % (0-12); NEUTROPHILS # (AUTO) 2.4 X 10^3 (1.8-7.8); NEUTROPHILS % (AUTO) 49 % (42-75); PLATELET COUNT 291 10^3/uL (130-400); RED BLOOD COUNT 3.59 10^6/uL (4.35-5.85); RED CELL DISTRIBUTION WIDTH 12.8 % (10.0-14.5); WHITE BLOOD COUNT 4.8 10^3/uL (4.3-11.0)
[2018-05-14 12:51] LABS: MEAN CORPUSCULAR HEMOGLOBIN 31 PG (25-34)
[2018-05-14 13:05] LABS: BUN/CREATININE RATIO 16; CARBON DIOXIDE 27 MMOL/L (21-32); CHLORIDE 107 MMOL/L (98-107); GFR ESTIMATED > 60; GLUCOSE 87 MG/DL (70-105); POTASSIUM 3.8 MMOL/L (3.6-5.0); SODIUM 142 MMOL/L (135-145)
[2018-05-14] MEDS ORDERED: LIDOCAINE/EPI 1%-1:100,000 (XYLOCAINE) 20ML ONE (13:19)
[2018-05-14] MEDS ORDERED: ONDANSETRON 4 MG/2 ML (SDV) Z0FRAN ONE (13:38)
[2018-05-14] MEDS ORDERED: SEVOFLURANE (ULTANE) 15 ML INHAL SOLN ONE (13:38)
[2018-05-14] MEDS ORDERED: LIDOCAINE PF 2% 5 ML (XYLOCAINE) VIAL ONE (13:38)
[2018-05-14] MEDS ORDERED: GLYCOPYRROLATE 0.2 MG/ML (ROBINUL) 2 ML VIAL ONE (13:38)
[2018-05-14] MEDS ORDERED: proPOfol 200 MG/20 ML (DIPRIVAN) VIAL IV ONE (13:38)
[2018-05-14] MEDS ORDERED: ROCURONIUM 10 MG/ML 5 ML SYRINGE IV ONE (13:38)
[2018-05-14] MEDS ORDERED: fentaNYL INJECTION 100 MCG/2 ML AMP ONE (13:38)
[2018-05-14] MEDS ORDERED: DEXAMETHASONE 10 MG/ML (DECADRON) 1 ML VIAL ONE (13:38)
[2018-05-14] MEDS ORDERED: NEOSTIGMINE 1 MG/ML 5 ML SYRINGE ONE (13:38)
[2018-05-14] MEDS ORDERED: MIDAZOLAM 2 MG/2 ML (VERSED) VIAL ONE (13:39)
--- NOTE | 2018-05-14 13:45 | Progress Note-Pre Operative ---
Pre-Operative Progress Note H&P Reviewed The H&P was reviewed, patient examined and no changes noted. Date Seen by Provider: May 14, 2018 Time Seen by Provider: 13:30 Date H&P Reviewed: May 14, 2018 Time H&P Reviewed: 13:30 Pre-Operative Diagnosis: Left Submandibular duct stone NOHELIA EASTMAN MD May 14, 2018 13:45
--- OUTSIDE RECORDS SUMMARY | 2018-05-14 14:42 | XMS REPORT | Continuity of Care Document ---
Author Author [facility] Organization [facility] Address Unknown Phone Unavailable Allergies Active Description Code Type Severity Reaction Onset Reported/Identified Relationship to Patient Clinical Status Yes No Allergy Information Available [id number] Drug Allergy Unknown N/A 2014 Yes No Known Drug Allergies [id number] Drug Allergy Unknown N/A 06/04/2017 Medications There is no data. Problems Date Dx Coded Attending Type Code Diagnosis Diagnosed By 09/28/2014 Ot 527.5 11/05/2014 YON REYES DO Ot 789.34 08/25/2016 YON REYES DO Ot 789.34 ABDOMINAL/PELVIC SWELLING,MASS/LUMP,LFT 08/25/2016 YON REYES DO Ot 789.34 ABDOMINAL/PELVIC SWELLING,MASS/LUMP,LFT 08/29/2016 JULIANO DO, NOHELIA S Ot O20.9 HEMORRHAGE IN [...] OF COMP OF PREG, CHLDBR 10/16/2016 FENECH DONOHELIA S Ot Z32.01 ENCOUNTER FOR TEST, RESULT POS 10/16/2016 FENECH DONOHELIA S Ot Z87.59 PERSONAL HISTORY OF COMP OF PREG, CHLDBR 01/11/2017 COSENS DO, YON L Ot 789.34 ABDOMINAL/PELVIC SWELLING,MASS/LUMP,LFT 01/11/2017 FENECH DO, NOHELIA S Ot O20.9 HEMORRHAGE IN EARLY , UNSPECIFI 01/11/2017 FENECH DO, NOHELIA S Ot Z32.01 ENCOUNTER FOR TEST, RESULT POS 01/11/2017 FENECH DO, NOHELIA S Ot Z87.59 PERSONAL HISTORY OF COMP OF PREG, CHLDBR 01/15/2017 COSENS DO, YON L Ot 789.34 ABDOMINAL/PELVIC SWELLING,MASS/LUMP,LFT 01/15/2017 FENECH DO, NOHELIA S Ot O20.9 HEMORRHAGE IN EARLY , UNSPECIFI 01/15/2017 FENECH DO, NOHELIA S Ot Z32.01 ENCOUNTER FOR TEST, RESULT POS 01/15/2017 FENECH DO NOHELIA S Ot Z87.59 PERSONAL HISTORY OF COMP OF PREG, CHLDBR 01/16/2017 FENECH DO NOHELIA S Ot Z36 ENCOUNTER FOR SCREENING OF MOT 01/16/2017 FENECH DO, NOHELIA S Ot Z3A.21 21 WEEKS GESTATION OF 01/23/2017 FENECH DO NOHELIA S Ot Z36 ENCOUNTER FOR SCREENING OF MOT 01/23/2017 FENECH DO, NOHELIA S Ot Z3A.21 21 WEEKS GESTATION OF 01/30/2017 FENECH DO NOHELIA S Ot Z36 ENCOUNTER FOR SCREENING OF MOT 01/30/2017 FENECH DO, NOHELIA S Ot Z3A.21 21 WEEKS GESTATION OF 06/02/2017 COSENS DO, YON L Ot 789.34 ABDOMINAL/PELVIC SWELLING,MASS/LUMP,LFT 06/02/2017 FENECH DO NOHELIA S Ot O20.9 HEMORRHAGE IN EARLY , UNSPECIFI 06/02/2017 FENECH DO NOHELIA S Ot Z32.01 ENCOUNTER FOR TEST, RESULT POS 06/02/2017 FENECH DO, NOHELIA S Ot Z87.59 PERSONAL HISTORY OF COMP OF PREG, CHLDBR 06/02/2017 FENECH DO NOHELIA S Ot Z36 ENCOUNTER FOR SCREENING OF MOT 06/02/2017 FENECH DO, NOHELIA S Ot Z3A.21 21 WEEKS GESTATION OF 06/06/2017 LAIECH DO NOHELIA S Ot D62 ACUTE POSTHEMORRHAGIC ANEMIA 06/06/2017 LAIECH DO NOHELIA S Ot D72.829 ELEVATED WHITE BLOOD CELL COUNT, UNSPECI 06/06/2017 NOHELIA HENAO DO Ot F53 PUERPERAL PSYCHOSIS 06/06/2017 NOHELIA HENAO DO Ot O33.9 MATERNAL CARE FOR DISPROPORTION, UNSPECI 06/06/2017 NOHELIA HENAO DO Ot O90.81 ANEMIA OF THE PUERPERIUM 06/06/2017 JULIANO BYRD NOHELIA Benton Ot O99.13 OTH DIS OF THE BLD/BLD-FORM ORG/IMMUN ME 06/06/2017 NOHELIA HENAO DO Ot O99.345 OTHER MENTAL DISORDERS COMPLICATING THE 06/06/2017 NOHELIA HENAO DO Ot O99.824 STREPTOCOCCUS B CARRIER STATE COMPLICATI 06/06/2017 NOHELIA HENAO DO Ot Z37.0 SINGLE LIVE 06/06/2017 NOHELIA HENAO DO Ot Z3A.39 39 WEEKS GESTATION OF 05/09/2018 RAIZA GUERRERO, NOHELIA Wyman Ot Z01.818 ENCOUNTER FOR OTHER PREPROCEDURAL EXAMIN Procedures Code Description Performed By Performed On [id number] EXTRACTION OF POC, LOW CERVICAL, OPEN AP 06/03/2017 [id number] INTRODUCE OF OTH THERAP SUBST INTO FEM R 06/03/2017 Results Test Result Range Serum or plasma choriogonadotropin measurement (units/volume) - 09/29/16 10:14 Serum or plasma choriogonadotropin measurement (units/volume) 805 m[ iU]/mL <5 Complete blood count (CBC) with automated white blood cell (WBC) differential - 06/02/17 19:50 Blood leukocytes automated count (number/volume) 8.9 10*3/uL 4.3-11.0 Blood erythrocytes automated count (number/volume) 3.39 10*6/uL 4.35-5.85 Venous blood hemoglobin measurement (mass/volume) 11.3 g/dL 11.5-16.0 Blood hematocrit (volume fraction) 33 % 35-52 Automated erythrocyte mean corpuscular volume 98 [foz_us] 80-99 Automated erythrocyte mean corpuscular hemoglobin (mass per erythrocyte) 33 pg 25-34 Automated erythrocyte mean corpuscular hemoglobin concentration measurement ( mass/volume) 34 g/dL 32-36 Automated erythrocyte distribution width ratio 13.3 % 10.0-14.5 Automated blood platelet count (count/volume) 249 10*3/uL 130-400 Automated blood platelet mean volume measurement 11.3 [foz_us] 7.4-10.4 Automated blood neutrophils/100 leukocytes 75 % 42-75 Automated blood lymphocytes/100 leukocytes 18 % 12-44 Blood monocytes/100 leukocytes 7 % 0-12 Automated blood eosinophils/100 leukocytes 0 % 0-10 Automated blood basophils/100 leukocytes 0 % 0-10 Blood neutrophils automated count (number/volume) 6.7 10*3 1.8-7.8 Blood lymphocytes automated count (number/volume) 1.6 10*3 1.0-4.0 Blood monocytes automated count (number/volume) 0.6 10*3 0.0-1.0 Automated eosinophil count 0.0 10*3/uL 0.0-0.3 Automated blood basophil count (count/volume) 0.0 10*3/uL 0.0-0.1 Blood type T Indirect antibody screen panel - 06/02/17 19:50 ABO+Rh group AP NRG Transfusion band number [id number] NRG Blood group antibody screen NEGATIVE NRG Methicillin resistant Staphylococcus aureus (MRSA) screening culture - 18:30 Methicillin resistant Staphylococcus aureus (MRSA) screening culture NEG NRG Complete blood count (CBC) with automated white blood cell (WBC) differential - 06/04/17 05:10 Blood leukocytes automated count (number/volume) 16.5 10*3/uL 4.3-11.0 Blood erythrocytes automated count (number/volume) 2.58 10*6/uL 4.35-5.85 Venous blood hemoglobin measurement (mass/volume) 8.6 g/dL 11.5-16.0 Blood hematocrit (volume fraction) 26 % 35-52 Automated erythrocyte mean corpuscular volume 99 [foz_us] 80-99 Automated erythrocyte mean corpuscular hemoglobin (mass per erythrocyte) 33 pg 25-34 Automated erythrocyte mean corpuscular hemoglobin concentration measurement ( mass/volume) 34 g/dL 32-36 Automated erythrocyte distribution width ratio 13.2 % 10.0-14.5 Automated blood platelet count (count/volume) 186 10*3/uL 130-400 Automated blood platelet mean volume measurement 10.7 [foz_us] 7.4-10.4 Automated blood neutrophils/100 leukocytes 83 % 42-75 Automated blood lymphocytes/100 leukocytes 11 % 12-44 Blood monocytes/100 leukocytes 6 % 0-12 Automated blood eosinophils/100 leukocytes 0 % 0-10 Automated blood basophils/100 leukocytes 0 % 0-10 Blood neutrophils automated count (number/volume) 13.7 10*3 1.8-7.8 Blood lymphocytes automated count (number/volume) 1.8 10*3 1.0-4.0 Blood monocytes automated count (number/volume) 0.9 10*3 0.0-1.0 Automated eosinophil count 0.0 10*3/uL 0.0-0.3 Automated blood basophil count (count/volume) 0.0 10*3/uL 0.0-0.1 Complete blood count (CBC) with automated white blood cell (WBC) differential - 06/05/17 05:10 Blood leukocytes automated count (number/volume) 12.2 10*3/uL 4.3-11.0 Blood erythrocytes automated count (number/volume) 2.29 10*6/uL 4.35-5.85 Venous blood hemoglobin measurement (mass/volume) 7.7 g/dL 11.5-16.0 Blood hematocrit (volume fraction) 23 % 35-52 Automated erythrocyte mean corpuscular volume 101 [foz_us] 80-99 Automated erythrocyte mean corpuscular hemoglobin (mass per erythrocyte) 34 pg 25-34 Automated erythrocyte mean corpuscular hemoglobin concentration measurement ( mass/volume) 33 g/dL 32-36 Automated erythrocyte distribution width ratio 13.7 % 10.0-14.5 Automated blood platelet count (count/volume) 197 10*3/uL 130-400 Automated blood platelet mean volume measurement 11.1 [foz_us] 7.4-10.4 Automated blood neutrophils/100 leukocytes 79 % 42-75 Automated blood lymphocytes/100 leukocytes 15 % 12-44 Blood monocytes/100 leukocytes 6 % 0-12 Automated blood eosinophils/100 leukocytes 0 % 0-10 Automated blood basophils/100 leukocytes 0 % 0-10 Blood neutrophils automated count (number/volume) 9.6 10*3 1.8-7.8 Blood lymphocytes automated count (number/volume) 1.8 10*3 1.0-4.0 Blood monocytes automated count (number/volume) 0.7 10*3 0.0-1.0 Automated eosinophil count 0.0 10*3/uL 0.0-0.3 Automated blood basophil count (count/volume) 0.0 10*3/uL 0.0-0.1 Encounters ACCT No. Visit Date/Time Discharge Status Pt. Type Provider Facility Loc./Unit Complaint [id number] 05/08/2018 14:15:00 05/08/2018 23:59:59 CLS Preadmit ANDREAJUDITH DIRECTOR LONG TERM CARE [facility] RAD NIPPLE DISCHARGE,BLOODY [id number] 05/08/2018 05:38:00 05/08/2018 23:59:59 CLS Outpatient NOHELIA EASTMAN MD [facility] PREOP LT. SUBMANDIBULAR DUCT STONE [id number] 06/02/2017 19:25:00 06/06/2017 18:10:00 DIS Inpatient NOHELIA HENAO DO [facility] LDRP INDUCTION [id number] 01/15/2017 10:24:00 01/15/2017 23:59:59 CLS Outpatient NOHELIA HENAO DO [facility] RAD ANATOMY SCAN [id number] 09/29/2016 10:01:00 09/29/2016 23:59:59 CLS Outpatient NOHELIA HENAO DO [facility] LAB POSITIVE PREGNANCE TEST, MISCARRIAGE WITHIN YR [id number] 08/25/2016 13:13:00 08/25/2016 23:59:59 CLS Outpatient NOHELIA HENAO DO [facility] LAB BLEEDING IN EARLY [id number] 09/28/2014 14:30:00 09/28/2014 23:59:59 CLS Outpatient YON REYES DO [facility] RAD MASS LT LOWER ABD [id number] 05/09/2018 09:38:00 Document Registration [id number] 09/28/2014 14:49:00 Document Registration [id number] 09/28/2014 14:49:00 Document Registration [id number] 10/13/2010 10:01:00 Document Registration
[2018-05-14] MEDS ORDERED: NS IV 1000 ML 1,000 ML IV SCH (14:44)
--- NOTE | 2018-05-14 14:44 | Progress Note-Post Operative ---
Post-Operative Progess Note Surgeon (s)/Scalp Treatment Operator (s) Surgeon NOHELIA EASTMAN MD Scalp Treatment Operator n/a Pre-Operative Diagnosis Left Submandibular duct stone Post-Operative Diagnosis same Post-Op Procedure Note Date of Procedure: May 14, 2018 Name of Procedure Performed: Intraoral Excision of Left Submandiublar duct stone Description & Findings Description and Findings: n/a Anesthesia Type get Estimated Blood Loss minimal Packing none. Specimen(s) collected/removed 2cm stone to path NOHELIA EASTMAN MD May 14, 2018 14:44
[2018-05-14] MEDS ORDERED: APAP 325 MG/10.15 ML LIQ (TYLENOL) UDC PO PRN (14:45)
[2018-05-14] MEDS ORDERED: HYDROcodone/APAP 5 MG/325 MG (LORTAB) TAB PO PRN (14:45)
[2018-05-14] MEDS ORDERED: ONDANSETRON 4 MG/2 ML (SDV) Z0FRAN IVP PRN (15:15)
[2018-05-14] MEDS ORDERED: morphine INJ 10 MG/ML 1ML (SYR OR VIAL) IVP ONE (15:15)
[2018-05-14 15:40] VITALS: BP 105/74
[2018-05-14] MEDS ORDERED: HYDR-3870 PO ×2 (15:51)
--- NOTE | 2018-05-14 15:52 | Anesthesia-General Post-Op ---
General Patient Condition Mental Status/LOC: Same as Preop Cardiovascular: Satisfactory Nausea/Vomiting: Absent Respiratory: Satisfactory Pain: Controlled Complications: Absent Post Op Complications Complications None Follow Up Care/Instructions Patient Instructions None needed. Anesthesia/Patient Condition Patient Condition Patient is doing well, no complaints, stable vital signs, no apparent adverse anesthesia problems. JENNIFER FOSS DO May 14, 2018 15:52
[2018-05-14 16:10] VITALS: BP 122/76
[2018-05-14 16:40] VITALS: BP 118/76
[2018-05-14 16:45] VITALS: BP 118/76
== END 2018-05-14 16:45 | disposition home or self-care (01) ==
LOC: SDC 12:01
PROVIDERS: ATTEND Otolaryngology Otolaryngology/Facial Plastic Surgery
DX: K11.5 Sialolithiasis (principal); Z11.2 Encounter for screening for other bacterial diseases
CPT/HCPCS: 36415; 80048; 84703; 85025; 87081

== ENCOUNTER → 2018-05-15 | Outpatient (CLI) | payer BC ==
[~2018-05-15] MED LIST changes: +HYDR-3870 PO
--- NOTE | 2018-05-15 19:22 | Diagnostic Imaging Report ---
INDICATION: Bloody nipple discharge. Sonographic interrogation of all 4 quadrants in the retroareolar region of the left breast was performed. There is a tiny cyst 12 o'clock location 5 cm from the nipple measuring 3-4 mm in size. There are dilated ducts in the retroareolar location. No definite intraductal mass is seen. Small normal-appearing lymph node in the left axilla is seen. No other abnormalities are detected. IMPRESSION: Ductal dilatation retroareolar left breast. No definite intraductal lesion is detected. Note is made of a tiny cyst 12 o'clock location. ACR BI-RADS Category 2: Benign findings. Dictated by: Dictated on workstation # [id number]
== END ==
LOC: RAD 13:22
PROVIDERS: ATTEND Nurse Practitioner
DX: N64.52 Nipple discharge (principal)
CPT/HCPCS: 76641

== ENCOUNTER → 2019-03-09 | Outpatient (CLI) | payer BC ==
--- NOTE | 2019-03-09 09:05 | Diagnostic Imaging Report ---
INDICATION: Abdominal pain. FINDINGS: Liver is normal in size without focal lesions. There is cholelithiasis. There is no biliary ductal dilatation. Common bile duct measures 3 mm. There is no gallbladder wall thickening or pericholecystic fluid. The visualized portions of the pancreas are unremarkable. The spleen is normal in size and appearance. The aorta is nonaneurysmal. The IVC is patent. Both kidneys are normal. There is no ascites. IMPRESSION: Cholelithiasis, otherwise unremarkable abdominal ultrasound. Dictated by: Dictated on workstation # [id number]
== END ==
LOC: RAD 08:04
PROVIDERS: ATTEND Nurse Practitioner Family
DX: K80.20 Calculus of gallbladder without cholecystitis without obstruction (principal)
CPT/HCPCS: 76700

== ENCOUNTER → 2021-02-09 | Outpatient (CLI) | payer BC ==
[~2021-02-09] MED LIST changes: +SERT-413 PO; -SERT50TA9 PO
--- NOTE | 2021-02-09 18:08 | Diagnostic Imaging Report ---
INDICATION: anatomy survey TECHNIQUE: Multiple real-time grayscale images were obtained over the gravid uterus. COMPARISON: None FINDINGS: The cervix measures 5.1 cm. Placenta is posteriorly positioned and there is no previa. The amount of amniotic fluid appears visually appropriate. Maternal adnexa are poorly evaluated due to advanced gestational age. anatomy survey was performed and the following structures are visualized and normal: Stomach, four-chamber heart, kidneys, umbilical cord insertion, urinary bladder, three-vessel cord, spine, left ventricular outflow tract, right ventricular outflow tract, cerebral ventricles, cerebellum, cisterna magna, profile and extremities. Biometrical measurements are as follows: Biparietal 4.83 cm, age 20 weeks 5 days. Head circumference 17.5 cm, age 20 weeks 1 days. Abdominal circumference 15.8 cm, age 21 weeks 0 days. Femur length 2.97 cm, age 19 weeks 2 days. Sonographic estimate age: 20 weeks 2 days. Sonographic estimated date of delivery: 06/27/21. Estimated Weight: 334 gm (+/- 49 gm). LMP percentile: 70%. heart rate: 140 beats per minute. number: 1 of 1. IMPRESSION: 1. Single live intrauterine with normal anatomy survey. Dictated by: Dictated on workstation # [id number]
== END ==
LOC: RAD 10:45
PROVIDERS: ATTEND Obstetrics & Gynecology
DX: Z34.82 Encounter for supervision of other normal pregnancy, second trimester (principal); Z3A.20 20 weeks gestation of pregnancy
CPT/HCPCS: 76805

== ENCOUNTER 2021-04-05 08:31 | Outpatient (RCR) | payer BC ==
[~2021-04-05] VITALS: Ht 162.6 cm; Wt 71.8 kg
[2021-04-05] MEDS ORDERED: IRON DEXTRAN 1,000 MG/NS 250 ML IVPB IV ONE ×2 (09:00)
[2021-04-05] MEDS ORDERED: IRON DEXTRAN 25 MG/NS 6.25 ML TOTAL VOLUME IV ONE ×3 (09:00)
[2021-04-05 09:06] VITALS: BP 97/57
== END 2021-04-05 12:05 | disposition home or self-care (01) ==
LOC: SDC 08:31
PROVIDERS: ATTEND Obstetrics & Gynecology
DX: D64.9 Anemia, unspecified (principal); R53.83 Other fatigue
CPT/HCPCS: 96365

== ENCOUNTER → 2021-05-11 | Outpatient (CLI) | payer BC ==
--- NOTE | 2021-05-11 18:19 | Diagnostic Imaging Report ---
INDICATION: Evaluate growth. TECHNIQUE: Multiple real-time grayscale images were obtained over the gravid uterus. COMPARISON: 02/09/2021. FINDINGS: There is a single live fetus in a cephalic presentation. heart rate was recorded at 149 bpm. Placenta is posterior. Amniotic fluid volume is 10.9 cm. Cervical length is 4.9 cm. Biometrical measurements are as follows: Biparietal 8.98 cm, age 36 weeks 3 days. Head circumference 33.47 cm, age 38 weeks 2 days. Abdominal circumference 31.69 cm, age 35 weeks 5 days. Femur length 6.14 cm, age 32 weeks 0 days. Sonographic estimate age: 35 weeks 5 days. Sonographic estimated date of delivery: 06/10/2021. Estimated Weight: 2561 gm (+/- 374 gm). LMP percentile: 96%. heart rate: 149 beats per minute. number: 1 of 1. IMPRESSION: Single live IUP measuring approximately 36 weeks gestational age. This is approximately 2 weeks earlier than prior OB ultrasound from 02/09/2021. Dictated by: Dictated on workstation # [id number]
== END ==
LOC: RAD 12:00
PROVIDERS: ATTEND Obstetrics & Gynecology
DX: Z34.93 Encounter for supervision of normal pregnancy, unspecified, third trimester (principal); Z3A.36 36 weeks gestation of pregnancy; Z87.59 Personal history of other complications of pregnancy, childbirth and the puerperium
CPT/HCPCS: 76805

== ENCOUNTER → 2021-06-01 | Outpatient (CLI) | payer BC ==
--- NOTE | 2021-06-01 13:04 | Diagnostic Imaging Report ---
INDICATION: Evaluate growth. TECHNIQUE: Multiple real-time grayscale images were obtained over the gravid uterus. COMPARISON: 05/11/2021. FINDINGS: There is a single live fetus in a cephalic presentation. heart rate was recorded at 150 BPM. Placenta is posterior. Amniotic fluid index is 10.3 cm. Cervical length is 3.3 cm. Biophysical profile was also performed. Overall biophysical profile score is 8/8. Biometrical measurements are as follows: Biparietal 9.16 cm, age 37 weeks 2 days. Head circumference 31.46 cm, age 35 weeks 3 days. Abdominal circumference 31.48 cm, age 35 weeks 3 days. Femur length 6.59 cm, age 34 weeks 0 days. Sonographic estimate age: 35 weeks 4 days. Sonographic estimated date of delivery: 07/02/2021. Estimated Weight: 2615 gm (+/- 382 gm). LMP percentile: 35%. heart rate: 150 beats per minute. number: 1 of 1. IMPRESSION: A single live fetus measuring approximately 35-36 weeks (+/- 3 weeks). Biophysical profile score is normal at 8/8. Dictated by: Dictated on workstation # [id number]
== END ==
LOC: RAD 10:30
PROVIDERS: ATTEND Obstetrics & Gynecology
DX: O09.523 Supervision of elderly multigravida, third trimester (principal); Z3A.35 35 weeks gestation of pregnancy
CPT/HCPCS: 76805; 76819

== ENCOUNTER 2021-06-19 05:30 | Outpatient (CLI) | payer BC ==
[~2021-06-19] VITALS: Ht 152.4 cm; Wt 76.4 kg
[2021-06-19] MEDS ORDERED: VITAMIN B12 (13:27)
[2021-06-19] MEDS ORDERED: MAGNESIUM (13:27)
== END 2021-06-19 13:31 | disposition home or self-care (01) ==
LOC: PREOP 05:30
PROVIDERS: ATTEND Obstetrics & Gynecology
DX: Z01.818 Encounter for other preprocedural examination (principal)

== ENCOUNTER 2021-06-21 03:42 | Inpatient (IN) | payer BC ==
[2021-06-21] VITALS (8 sets, daily range): BP systolic 99–116; BP diastolic 51–79
[~2021-06-21] VITALS: Ht 162 cm; Wt 78.0 kg
[~2021-06-21 03:42] MED LIST changes: +MAGNESIUM; +VITAMIN B12
[2021-06-21] MEDS ORDERED: LACTATED RINGERS 1,000 ML IV SCH ×2 (07:45)
[2021-06-21] MEDS ORDERED: CITRIC ACID/SOB CIT (BICITRA) 30 ML UDC PO ONE (07:45)
[2021-06-21] MEDS ORDERED: METOCLOPRAMIDE INJ 10 MG/2 ML (REGLAN) IV ONE (07:45)
[2021-06-21] MEDS ORDERED: FAMOTIDINE 20MG/2ML IV (PEPCID) IV ONE (07:45)
[2021-06-21] MEDS ORDERED: TRANEXAMIC ACID INJECTION 1,000 MG in NS (IVPB) 50 ML IV ONE (07:45)
[2021-06-21] MEDS ORDERED: ceFAZolin 2 GM IV Premixed 50 ML IV ONE (07:45)
[2021-06-21 08:21] LABS: BASOPHILS % (AUTO) 0 % (0-10); EOSINOPHILS % (AUTO) 1 % (0-10); HEMATOCRIT 33 % (35-52); HEMOGLOBIN 11.3 g/dL (11.5-16.0); LYMPHOCYTES # (AUTO) 1.7 10^3/uL (1.0-4.0); LYMPHOCYTES % (AUTO) 21 % (12-44); MEAN CORPUSCULAR HEMOGLOBIN 33 pg (25-34); MEAN CORPUSCULAR HGB CONC 34 g/dL (32-36); MEAN CORPUSCULAR VOLUME 97 fL (80-99); MEAN PLATELET VOLUME 10.1 fL (9.0-12.2); MONOCYTES # (AUTO) 0.6 10^3/uL (0.0-1.0); MONOCYTES % (AUTO) 8 % (0-12); NEUTROPHILS # (AUTO) 5.9 10^3/uL (1.8-7.8); NEUTROPHILS % (AUTO) 70 % (42-75); PLATELET COUNT 278 10^3/uL (130-400); WHITE BLOOD COUNT 8.4 10^3/uL (4.3-11.0)
--- NOTE | 2021-06-21 09:00 | History & Physical-OB ---
OB - Chief Complaint & HPI Date/Time Date of Admission: Date of Admission: Jun 21, 2021 at 07:20 Date seen by a Provider: Jun 21, 2021 Time Seen by a Provider: 08:55 Chief Complaint/History OB-Reason for Admission/Chief: Section Hx : 3 Hx Para: 1 Expected Date of Delivery: Jul 01, 2021 Gestational Age in Weeks: 38 Gestational Age in Days: 4 Indication for : desires repeat Other reason for admission: This is a 40-year-old 3 para 1 female at 38-4/7 weeks with a history of previous . She is advanced maternal age and has a previous history of hemorrhage with transverse arrest and tear into the uterine artery. She has seen a perinatologist who recommended delivery between 38 and 39 weeks or sooner if she went into labor. So she is scheduled today at 38-4/7 weeks. Her has been complicated by advanced maternal age, iron deficient and B12 deficiency anemia. She has had an iron infusion as well as a B12 injection. Her current hemoglobin is 11.3. is otherwise uncomplicated. Admission Nurse Assessment Rev: Yes History of Labs A+/- HBsAg - HIV - VDRL NR Rub I GBS + Allergies and Home Medications Allergies Coded Allergies: No Known Drug Allergies (Unverified , 06/19/21) Patient Home Medication List Home Medication List Reviewed: Yes [Magnesium] , UD, (Reported) Entered as Reported by: OMEGA HERNANDEZ on 06/19/211326 Last Action: Reviewed [Vitamin B12] , UD, (Reported) Entered as Reported by: OMEGA HERNANDEZ on 06/19/211326 Last Action: Reviewed Discontinued Medications Docusate Sodium (Docusate Sodium) 100 Mg Capsule, 100 MG PO BID PRN for CONSTIPATION-1ST LINE Discontinued Reason: No Longer Taking Prescribed by: NOHELIA HENAO on 06/04/1782 Last Action: Discontinued Ferrous Sulfate (Ferrous Sulfate) 325 Mg Tablet, 325 MG PO BID Discontinued Reason: No Longer Taking Prescribed by: NOHELIA HENAO on 06/04/1799 Last Action: Discontinued Hydrocodone/Acetaminophen (Lorcet 5-325 mg Tablet) 1 Each Tablet, 1-2 TAB PO Q4H PRN for PAIN-MODERATE Discontinued Reason: No Longer Taking Prescribed by: KATHERINE BUSBY on 05/14/18 1551 Vit No.124/Iron/FA ( Vitamin Tablet) 1 Each Tablet, 1 EACH PO DAILY, (Reported) Discontinued Reason: No Longer Taking Entered as Reported by: FLORINA MANJARREZ on 06/02/17 7119 Last Action: Discontinued OB - History Hx of Present Ultrasounds: Normal mid trimester US Obstetrical Complications: None Medical Complications: None Information Induced Hypertension: No Maternal Gestational Diabetes: No Hemorrhage: Yes Obstetrical History Hx : 3 Hx Para: 1 Hx # Term Pregnancies: 1 Hx # Pregnancies: 0 Number of Living Children: 1 Hx Termination: No Hx Total # of Abortions (Spona: 1 Hx Multiple Gestation: No Hx Ectopic : No Hx Stillbirth: No Hx Complication: No Hx Induced Hypertens: No Hx Maternal Gestational Diabet: No Hx Hemorrhage: Yes Delivery History Hx Dystocia: Yes Hx Forceps Assisted Delivery: No Hx Vacuum Extraction Assisted: No Hx Placenta Abnormality: No Hx Distress: No Hx Large For Gestational Age I: Yes Hx Small for Gestational Age I: No Hx Section: Yes Hx Vaginal Delivery Post C-Sec: No Hx Blood Disorders: Yes (anemia w/preg) Patient Past Medical History n/a Social History/Family History Alcohol Use: Denies Use Recreational Drug Use: No Smoking Cessation: Never smoker 2nd Hand Smoke Exposure: No Immunizations Influenza Vaccine Up-to-Date: Yes; Up-to-Date First/Initial COVID19 Vaccine: july 2020 Second COVID19 Vaccination: august 2020 Tetanus Booster (TDap): Less than 5yrs (04/10/21) Rubella: immune RPR/VDRL: Negative GBS Status: Positive HBsAG: Negative OB - Admission Exam Physical Exam Vitals: Vital Signs 06/21/21 08:36 Temp 36.3 Pulse 88 Resp 18 Pulse Ox 97 O2 Delivery Room Air Heart: Rhythm Normal Lungs: Clear Abdomen: Gravid Extremities: Normal Reflexes: Normal Cervical Dilatation: other (NE) Membranes: Intact Heart Rate: 140's Accelerations: Accelerations Present Decelerations: No Decelerations Short Term Variability: Present Project Manager Finance Variability: Average (6-25) Contractions on Admission: 6-10 Minutes Apart Labs Laboratory Tests Test 06/21/21 08:00 Range/Units White Blood Count 8.4 4.3-11.0 10^3/uL Red Blood Count 3.43 L 3.80-5.11 10^6/uL Hemoglobin 11.3 L 11.5-16.0 g/dL Hematocrit 33 L 35-52 % Mean Corpuscular Volume 97 80-99 fL Mean Corpuscular Hemoglobin 33 25-34 pg Mean Corpuscular Hemoglobin Concent 34 32-36 g/dL Red Cell Distribution Width 13.3 10.0-14.5 % Platelet Count 278 130-400 10^3/uL Mean Platelet Volume 10.1 9.0-12.2 fL Immature Granulocyte % (Auto) 1 % Neutrophils (%) (Auto) 70 42-75 % Lymphocytes (%) (Auto) 21 12-44 % Monocytes (%) (Auto) 8 0-12 % Eosinophils (%) (Auto) 1 0-10 % Basophils (%) (Auto) 0 0-10 % Neutrophils # (Auto) 5.9 1.8-7.8 10^3/uL Lymphocytes # (Auto) 1.7 1.0-4.0 10^3/uL Monocytes # (Auto) 0.6 0.0-1.0 10^3/uL Eosinophils # (Auto) 0.0 0.0-0.3 10^3/uL Basophils # (Auto) 0.0 0.0-0.1 10^3/uL Immature Granulocyte # (Auto) 0.1 0.0-0.1 10^3/uL OB - Assessment/Plan/Diagnosis Assessment Assessment: section Admission Dx 38 week gestation previous section history of PPH history of macrosomia advanced maternal age history of iron def anemia history of B12 deficiency Recommended to delivery 38-39 weeks due to previous delivery and AMA per [facility]. Admission Status: Inpatient Order (span 2 midnights) Reason for Inpatient Admission: section Plan Plan: Section Other Plan Plan repeat section today. Will give prophylactic TXA due to history of pp hemorrhage Risks of bleeding, infection, injury to bowel, bladder and ureter, and surrounding tissues has been explained to the patient and proper consents are signed. Will use prophylactic antibiotics and SCDs. . SHIMON SANCHEZ DO Jun 21, 2021 09:00
[2021-06-21 09:41] LABS: BILIRUBIN,URINE NEGATIVE (NEGATIVE); CLARITY,URINE CLEAR; COLOR,URINE YELLOW; GLUCOSE, URINE (UA) NEGATIVE (NEGATIVE); KETONES,URINE NEGATIVE (NEGATIVE); LEUKOCYTE ESTERASE ,URINE NEGATIVE (NEGATIVE); NITRITE,URINE NEGATIVE (NEGATIVE); PH,URINE 7.5 (5-9); PROTEIN,URINE NEGATIVE (NEGATIVE)
[2021-06-21 09:50] LABS: BACTERIA,URINE TRACE /HPF; WBC,URINE RARE /HPF
[2021-06-21] MEDS ORDERED: fentaNYL INJ 100 MCG/2 ML AMP ONE (11:01)
[2021-06-21] MEDS ORDERED: TETANUS,DIPTH,PERTUSS P/F (BOOSTRIX) 0.5 ML VIAL IM SCH (11:15)
[2021-06-21] MEDS ORDERED: OXYTOCIN PRE-MIX DRIP 500 ML IV SCH (11:15)
[2021-06-21] MEDS ORDERED: MEASLES,MUMPS,RUBELLA 1 EA INJ SC SCH (11:15)
[2021-06-21] MEDS ORDERED: morphine INJ 4 MG/ML 1 ML (VIAL/SYRINGE) IV PRN (11:15)
[2021-06-21] MEDS ORDERED: NALOXONE 0.4 MG/ML 1 ML (NARCAN) VIAL IV PRN (11:15)
[2021-06-21] MEDS ORDERED: TRANEXAMIC ACID 100 MG/ML 10 ML INJECTION ONE (11:28)
[2021-06-21] MEDS ORDERED: BUPIVACAINE 0.25% 30 ML (SENSORCAINE) VIAL ONE (11:56)
[2021-06-21] MEDS ORDERED: OXYTOCIN PRE-MIX DRIP 1,000 ML IV ONE (12:01)
--- NOTE | 2021-06-21 12:08 | Cesarean Section Operative ---
Procedure Procedure Note Pre-operative Diagnosis: Ekaterina Loaiza is a 40 /Para 3 / 1,Gestational Age 38 4/7 weeks, history of previous section, history of post hemorrhage, history of macrosomic , advanced maternal age, recommended by [facility] to deliver 38-39 weeks. Post-operative Diagnosis: same Procedure: Repeat low transverse section, scar revision Physician: SHIMON SANCHEZ Estimated blood loss: 500 mL Disposition: stable Findings: Viable female , Apgars 8/9, weight 8#8 ounces, intact placenta, 3vc, normal appearing uterus, tubes, and ovaries. Indications:Ekaterina Loaiza is a 40 /Para 3 / 1,Gestational Age 38 4/7 weeks, history of previous section, history of post hemorrhage, history of macrosomic infant, advanced maternal age, recommended by [facility] to deliver 38-39 weeks. Procedure Details: The patient was seen in pre-op and the procedure was discussed with the patient in full, including the risks, benefits, and alternatives. All questions were answered. The patient was taken to the operating room and a time out was performed, verifying patient and procedure. After spinal anesthesia was placed by our anesthesia colleagues, the patient was placed in the dorsal supine with leftward tilt for uterine displacement.~ Her abdomen was then prepped and draped in the typical sterile fashion. A Pfannenstiel skin incision was made using a scalpel and carried down through the underlying fascia. The fascia was incised in the midline and tented up using Micki clamps. On both the inferior and superior fascia side the rectus muscle was dissected off bluntly and sharply using Hamilton scissors. The peritoneum was identified and entered bluntly in the midline. This was then stretched laterally using manual strength. After entering the abdominal cavity and confirming lack of intraperitoneal adhesions, a large Marlo retractor was placed and the lower uterine segment was visualized. The bladder was advanced high on the lower uterus. A bladder flap was created with the use of Metzenbaum scissors.~ A scalpel was utilized to make a low transverse uterine incision. Amniotomy was performed with an Allis clamp with return of clear fluid. The 's head was grasped and brought to the level of the incision. Fundal pressure was applied and infant was delivered without difficulty. Mouth and nares were suctioned with bulb suction. After the umbilical cord was clamped and cut, the was handed off to the pediatric staff. A sample of cord blood was then obtained. The placenta was delivered intact via uterine massage. The uterus was cleared of all clots and debris. The uterine incision was closed using 0 Vicryl in a running locked fashion. A second imbricated layer was placed using 0 Vicryl in a running fashion as well. The hysterotomy site was examined and hemostasis was observed. The bilateral tubes and ovaries appeared normal. There were some adhesions of the bowel to the left tube and near the left uterine artery due to previous surgery. These were taken down with metzenbaum scissors. The abdominal gutters were cleared of all clots and debris. A final check of the uterine incision showed it to be hemostatic. The peritoneum was closed using 3-0 Vicryl in a running fashion. The fascia was closed with 0 PDS in a running fashion. The subcutaneous space was hemostatic, and irrigated. The subcutaneous space was closed with 3-0 Vicryl in several single interrupted stitches. The skin was then closed using 4-0 Monocryl in a running subcuticular fashion. The skin edges were reapproximated together and were hemostatic. A pressure dressing was applied. All sponge, lap and needle counts were correct at the end of the procedure per nursing. Vitals - Labs Vital Signs - I&O Vital Signs Date Time Temp Pulse Resp B/P (MAP) Pulse Ox O2 Delivery O2 Flow Rate FiO2 06/21/21 08:36 36.3 88 18 97 Room Air Labs Laboratory Tests 06/21/21 07:30: Urine Color YELLOW, Urine Clarity CLEAR, Urine pH 7.5, Urine Specific [place] 1.020, Urine Protein NEGATIVE, Urine Glucose (UA) NEGATIVE, Urine Ketones NEGATIVE, Urine Nitrite NEGATIVE, Urine Bilirubin NEGATIVE, Urine Urobilinogen 0.2, Urine Leukocyte Esterase NEGATIVE, Urine RBC (Auto) NEGATIVE, Urine RBC NONE, Urine WBC RARE, Urine Squamous Epithelial Cells 2-5, Urine Crystals NONE, Urine Bacteria TRACE, Urine Casts NONE, Urine Mucus NEGATIVE, Urine Culture Indicated NO 06/21/21 08:00: White Blood Count 8.4, Red Blood Count 3.43L, Hemoglobin 11.3L, Hematocrit 33L, Mean Corpuscular Volume 97, Mean Corpuscular Hemoglobin 33, Mean Corpuscular Hemoglobin Concent 34, Red Cell Distribution Width 13.3, Platelet Count 278, M nathalia Platelet Volume 10.1, Immature Granulocyte % (Auto) 1, Neutrophils (%) (Auto) 70, Lymphocytes (%) (Auto) 21, Monocytes (%) (Auto) 8, Eosinophils (%) (Auto) 1, Basophils (%) (Auto) 0, Neutrophils # (Auto) 5.9, Lymphocytes # (Auto) 1.7, Monocytes # (Auto) 0.6, Eosinophils # (Auto) 0.0, Basophils # (Auto) 0.0, Immature Granulocyte # (Auto) 0.1 SHIMON SANCHEZ DO Jun 21, 2021 12:08
[2021-06-21] MEDS ORDERED: PHENYLEPHRINE 100 MCG/ML 10 ML (ANESTHESIA) SYR ONE (12:32)
[2021-06-21] MEDS: KETOROLAC 30 MG/ML VIAL IV SCH ×3 (12:57→23:32)
[2021-06-21] MEDS: ACETAMINOPHEN 500 MG TAB (TYLENOL) PO SCH ×2 (14:40→21:28)
[2021-06-21] MEDS: CATHETER FLUSH 10 ML SYR IV SCH ×2 (21:25→22:00)
[2021-06-21] MEDS: DOCUSATE SODIUM 100 MG (COLACE) CAP PO SCH (21:28)
[2021-06-22 04:00] VITALS: BP 106/61
[2021-06-22] MEDS: CATHETER FLUSH 10 ML SYR IV SCH (05:03)
[2021-06-22] MEDS: ACETAMINOPHEN 500 MG TAB (TYLENOL) PO SCH ×3 (05:03→23:37)
[2021-06-22] MEDS: KETOROLAC 30 MG/ML VIAL IV SCH (05:03)
[2021-06-22 06:46] LABS: BASOPHILS % (AUTO) 0 % (0-10); EOSINOPHILS # (AUTO) 0.1 10^3/uL (0.0-0.3); EOSINOPHILS % (AUTO) 1 % (0-10); HEMATOCRIT 26 % (35-52); HEMOGLOBIN 8.7 g/dL (11.5-16.0); LYMPHOCYTES # (AUTO) 2.2 10^3/uL (1.0-4.0); LYMPHOCYTES % (AUTO) 18 % (12-44); MEAN CORPUSCULAR HEMOGLOBIN 33 pg (25-34); MEAN CORPUSCULAR HGB CONC 33 g/dL (32-36); MEAN CORPUSCULAR VOLUME 100 fL (80-99); MEAN PLATELET VOLUME 10.7 fL (9.0-12.2); MONOCYTES # (AUTO) 0.9 10^3/uL (0.0-1.0); MONOCYTES % (AUTO) 7 % (0-12); NEUTROPHILS # (AUTO) 8.9 10^3/uL (1.8-7.8); NEUTROPHILS % (AUTO) 73 % (42-75); PLATELET COUNT 228 10^3/uL (130-400); WHITE BLOOD COUNT 12.2 10^3/uL (4.3-11.0)
[2021-06-22 09:00] VITALS: BP 109/61
[2021-06-22] MEDS: DOCUSATE SODIUM 100 MG (COLACE) CAP PO SCH ×2 (10:00→23:37)
[2021-06-22] MEDS: FERROUS SULF 325 MG (IRON) TAB PO SCH (10:00)
--- NOTE | 2021-06-22 10:40 | Postpartum Progress Note ---
Post Op Post-operative Day #1 Subjective: Patient is without complaints. Ambulating, voiding after aponte removed. Tolerating a regular diet without nausea or vomiting. Normal lochia. Pain is well controlled with oral pain medications. Passing flatus. . Objective: See below for vitals, which have been reviewed. Physical Exam: General - Alert and oriented, no apparent distress Abdomen - Soft, appropriately tender to palpation, non-distended, fundus firm at umbilicus Incision - clean, dry and intact; no erythema or induration, no drainage Extremities - no edema, negative Luis's bilaterally Assessment: Post-operative day # 1, status post repeat section. Recovering well, hemodynamically stable Plan: Routine post-operative care. Encourage breast feeding. Viable female . VTE prophylaxis: SCDs. Encourage ambulation. Acute blood loss anemia: Preop hgb 11.3 --> 8.7. Ferrous sulfate supplementation. Vitals are stable. Plan for discharge on POD#3. Vitals - Labs Vital Signs - I&O Vital Signs Date Time Temp Pulse Resp B/P (MAP) Pulse Ox O2 Delivery O2 Flow Rate FiO2 06/22/21 04:00 36.8 75 16 106/61 (76) 99 Room Air 06/21/21 23:43 36.9 99 16 101/51 (68) 99 Room Air 06/21/21 21:00 98 Room Air 06/21/21 20:00 37.2 79 16 116/58 (77) 98 Room Air 06/21/21 18:48 37.5 75 18 108/63 (78) 98 Room Air 06/21/21 14:33 Room Air 06/21/21 13:25 Room Air 06/21/21 13:25 36.8 18 103/62 (76) 98 Room Air 06/21/21 13:15 36.8 18 108/63 (78) 98 Room Air 06/21/21 13:15 Room Air 06/21/21 13:00 Room Air 06/21/21 13:00 36.0 18 99/57 (71) 98 Room Air 06/21/21 12:45 Room Air 06/21/21 12:45 36.7 18 99/79 (86) 96 Room Air 06/21/21 12:25 Room Air I & O 06/22/21 07:00 Intake Total 4430 ml Output Total 725 ml Balance 3705 ml Labs Laboratory Tests 06/22/21 05:41: White Blood Count 12.2H, Red Blood Count 2.64L, Hemoglobin 8.7#L, Hematocrit 26L , Mean Corpuscular Volume 100H, Mean Corpuscular Hemoglobin 33, Mean Corpuscular Hemoglobin Concent 33, Red Cell Distribution Width 13.5, Platelet Count 228, Mean Platelet Volume 10.7, Immature Granulocyte % (Auto) 0, Neutrophils (%) (Auto) 73, Lymphocytes (%) (Auto) 18, Monocytes (%) (Auto) 7, Eosinophils (%) (Auto) 1, Basophils (%) (Auto) 0, Neutrophils # (Auto) 8.9H, Lymphocytes # (Auto) 2.2, Monocytes # (Auto) 0.9, Eosinophils # (Auto) 0.1, Basophils # (Auto) 0.0, Immature Granulocyte # (Auto) 0.1 LUIZA BALBUENA MD Jun 22, 2021 10:40
[2021-06-22] MEDS: IBUPROFEN 600 MG (MOTRIN) TAB PO SCH ×3 (12:20→23:38)
[2021-06-22 12:45] VITALS: BP 102/58
[2021-06-22 18:24] VITALS: BP 112/62
[2021-06-22 23:37] VITALS: BP 117/56
[2021-06-23 07:10] VITALS: BP 107/59
[2021-06-23] MEDS: IBUPROFEN 600 MG (MOTRIN) TAB PO SCH ×3 (07:10→19:39)
[2021-06-23] MEDS: ACETAMINOPHEN 500 MG TAB (TYLENOL) PO SCH ×2 (07:10→15:17)
[2021-06-23] MEDS ORDERED: IBUP-844 PO (07:36)
[2021-06-23] MEDS ORDERED: ACET-93 PO (07:36)
[2021-06-23] MEDS ORDERED: DOCU100C37 PO (07:36)
[2021-06-23] MEDS ORDERED: FERR325T24 PO (07:36)
--- NOTE | 2021-06-23 07:38 | Discharge Inst-Women's Service ---
Discharge Inst-Women's Serv Depart Medication/Instructions New, Converted or Re-Newed RX: Transmitted to Pharmacy (oxycodone transmitted previously) Final Diagnosis previous section iron def anemia B12 def anemia advanced maternal age previous history of post hemorrhage Problems Reviewed?: Yes Consults/Follow Up Additional Follow Up: Yes (1 week fo incision check and 6 week post exam) Activity Activity: Activity as Tolerated Driving Instructions: No Driving for 1 Week NO SMOKING: NO SMOKING Nothing Inside Vagina: No Douching, No Dozier Diet Discharge Diet: No Restrictions Symptoms to Report to : Swelling Increased, Bleeding Excessive, Pain Increased, Fever Over 101 Degrees F, Vaginal Bleeding Increase, Cramps in Feet or Legs, Vaginal Discharge Foul For Any Problems or Questions: Contact Your Physician Skin/Wound Care Infection Signs and Symptoms: Increased Redness, Foul Odor of Wound, Increased Drainage, Skin Itchy or Has a Rash, Increased Swelling, Temperature Above 101 F Operative Area Clean and Dry: Keep Incision Clean/Dry Stitches/[place]/Dermabond: Dermabond Bathing Instructions: SHIMON Malhotra DO Jun 23, 2021 07:38
[2021-06-23] MEDS: DOCUSATE SODIUM 100 MG (COLACE) CAP PO SCH ×2 (08:56→19:38)
[2021-06-23] MEDS: FERROUS SULF 325 MG (IRON) TAB PO SCH (08:57)
[2021-06-23 08:58] VITALS: BP 110/61
--- NOTE | 2021-06-23 09:12 | Postpartum Progress Note ---
Post Op Post-operative Day #2 Subjective: Patient is doing well. She did complain of noticing some small pink-tinged drainage on the right aspect of her incision; however, she denies purulent drai nage or induration. Ambulating, voiding and passing flatus. Tolerating a regular diet without nausea or vomiting. Normal lochia. Pain is well controlled with oral pain medications. . She is hesitant to go home today. Objective: Please see below for vitals which have been reviewed. Physical Exam: General - Alert and oriented, no apparent distress Abdomen - Soft, appropriately tender to palpation, non-distended, fundus firm at umbilicus Incision - Pfannenstiel incision clean, dry and intact with skin glue. No drainage expressed with palpation; no erythema or induration. Extremities - no edema, negative Luis's bilaterally Assessment: Post-operative day#2, status post repeat section. Recovering well, hemodynamically stable Plan: Routine post-operative care. Viable female . Breast feeding. VTE prophylaxis: SCDs. Encourage ambulation. Ferrous sulfate supplementation. Contraception: Patient plans to discuss at 6 week PPD visit. Plan for discharge on POD#3 per patient preference at this time. Vitals - Labs Vital Signs - I&O Vital Signs Date Time Temp Pulse Resp B/P (MAP) Pulse Ox O2 Delivery O2 Flow Rate FiO2 06/23/21 07:10 36.4 87 18 107/59 (75) 98 Room Air 06/22/21 23:37 36.6 89 16 117/56 (76) 98 Room Air 06/22/21 18:24 36.7 74 16 112/62 (79) 98 Room Air 06/22/21 12:45 36.7 73 16 102/58 (73) 98 Room Air I & O 06/23/21 06:59 Intake Total 1200 ml Output Total 500 ml Balance 700 ml LUIZA BALBUENA MD Jun 23, 2021 09:12
[2021-06-23 13:00] VITALS: BP 110/61
[2021-06-23 19:40] VITALS: BP 113/67
[2021-06-24] MEDS: IBUPROFEN 600 MG (MOTRIN) TAB PO SCH ×2 (01:44→08:42)
[2021-06-24] MEDS: ACETAMINOPHEN 500 MG TAB (TYLENOL) PO SCH ×2 (01:44→12:00)
[2021-06-24 01:47] VITALS: BP 116/60
[2021-06-24 08:41] VITALS: BP 112/59
[2021-06-24] MEDS: FERROUS SULF 325 MG (IRON) TAB PO SCH (08:42)
[2021-06-24] MEDS: DOCUSATE SODIUM 100 MG (COLACE) CAP PO SCH (08:42)
--- NOTE | 2021-06-24 10:57 | Postpartum Progress Note ---
Post Op Post-operative Day #3 Subjective: Patient is doing well this morning. She still reports that her incision has had mild serosanguinous drainage that she has noted along her pad. No discoloration noted. Ambulating, voiding after aponte removed. Tolerating a regular diet without nausea or vomiting. Normal lochia. Pain is well controlled with oral pain medications. Passing flatus and having bowel movements. . Objective: Vital Signs 06/24/21 08:41 Temp 37.0 Pulse 80 Resp 16 B/P (MAP) 112/59 (76) Pulse Ox 95 O2 Delivery Room Air Physical Exam: General - Alert and oriented, no apparent distress Abdomen - Soft, appropriately tender to palpation, non-distended, fundus firm at umbilicus Incision - Pfannenstiel incision clean, dry and intact with skin glue. No areas of erythema or induration. No drainage noted today as well with expression of the incision. Extremities - no edema, negative Luis's bilaterally Assessment: Post-operative day #3, status post repeat low transverse section. Recovering well, hemodynamically stable Plan: Routine post-operative care. Incision: Patient reports experiencing serosanguinous drainage from the right aspect of the incision; however, I was unable to express drainage on exam on POD#2 and 3 or see any areas of wound breakdown or separation. She has also re mained afebrile throughout her course. We reviewed instructions for adequate wound care of her incision. We also reviewed signs of infection which include purulent drainage, erythema or induration around the wound. Pt to follow-up in 1 week for an incision check with Dr. Monsalve. Viable female infant. Encourage breast feeding. VTE prophylaxis: SCDs. Encourage ambulation. Acute blood loss anemia: preop hgb 11.1 --> postop 9.2. Ferrous sulfate and B12 supplementation. Plan for discharge today with plans for 1 week incision check and follow-up in 6 weeks for a examination. Vitals - Labs Vital Signs - I&O Vital Signs Date Time Temp Pulse Resp B/P (MAP) Pulse Ox O2 Delivery O2 Flow Rate FiO2 06/24/21 08:41 37.0 80 16 112/59 (76) 95 Room Air 06/24/21 01:47 36.7 68 16 116/60 (78) 96 Room Air 06/23/21 19:40 36.7 81 18 113/67 (82) 97 Room Air 06/23/21 13:00 36.7 89 18 110/61 (77) 98 Room Air LUIZA BALBUENA MD Jun 24, 2021 10:57
--- NOTE | 2021-06-24 10:58 | Discharge Inst-Simple/Standard ---
Discharge Inst-Standard Reconcile Patient Problems Problems Reviewed?: Yes Patient Instructions/Follow Up Plan of Care/Instructions/FU: Plans for incision check in 1 week, followed by examination in 6 weeks. Activity as Tolerated: Yes Discharge Diet: No Restrictions LUIZA BALBUENA MD Jun 24, 2021 10:58
[2021-06-24] MEDS ORDERED: DOCU-143 PO (12:04)
[2021-06-24] MEDS ORDERED: ACET-2267 PO (12:04)
[2021-06-24] MEDS ORDERED: IBUP-1773 PO (12:04)
[2021-06-24] MEDS ORDERED: FERR325T18 PO (12:08)
--- NOTE | 2021-06-24 12:39 | Short Stay Summary ---
Discharge Summary Hospital Course Final Diagnosis: care following section Hospital Course Date of Admission: Jun 21, 2021 at 07:20 Admission Diagnosis : Family Physician/Provider: Pattie Kaur DO Date of Discharge: 06/24/21 Discharge Diagnosis: [ ] Hospital Course: [ ] Labs and Pending Lab Test: Home Meds Active Docusate Sodium 100 Mg Capsule 100 Mg PO BID Acetaminophen 500 Mg Tablet 1,000 Mg PO Q8HR Ibu (Ibuprofen) 600 Mg Tablet 600 Mg PO Q6HR Ferosul (Ferrous Sulfate) 325 Mg Tablet 325 Mg PO DAILY@0700 Reported [Vitamin B12] UD [Magnesium] UD Assessment/Pt Instructions Ekaterina Loaiza is a 40 yo female who was admitted at 38w4d for scheduled repeat section. Her course was complicated by acute blood loss anemia with a preop hgb of 11. 1 with a postop hgb of 9.2, requiring FeSO4 and B12 supplementation. She also complained of mild serosanguinous drainage from the right side of her incision without concern for infection or wound breakdown noted on exam during her course. She was discharged home on POD#3 in stable condition with plans for close follow-up in office in 1 week for an incision check and 6 weeks for a exam. Discharge Instructions Discharge Diet: No Restrictions Activity as Tolerated: Yes Discharge Physical Examination Allergies: Coded Allergies: No Known Drug Allergies (Unverified , 06/19/21) Discharge Summary Date of Admission Jun 21, 2021 at 07:20 Date of Discharge Discharge Date: Jun 24, 2021 Admission Diagnosis history of csection Discharge Diagnosis care following section (1) care following delivery LUIZA BALBUENA MD Jun 24, 2021 11:04
== END 2021-06-24 14:10 | disposition home or self-care (01) | DRG 787 ==
LOC: LDRP 07:20
PROVIDERS: ADMIT Obstetrics & Gynecology; ATTEND Obstetrics & Gynecology
PROC: 10D00Z1 Extraction of Products of Conception, Low, Open Approach (ICD-10-PCS; principal; 2021-06-21 11:10)
DX: O34.211 Maternal care for low transverse scar from previous cesarean delivery (principal); D62 Acute posthemorrhagic anemia; Z37.0 Single live birth; O90.81 Anemia of the puerperium; O99.824 Streptococcus B carrier state complicating childbirth; O99.013 Anemia complicating pregnancy, third trimester; D50.9 Iron deficiency anemia, unspecified; D51.9 Vitamin B12 deficiency anemia, unspecified; Z3A.38 38 weeks gestation of pregnancy
CPT/HCPCS: 36415; 81000; 85025; 86850; 86900; 86901; 94664

== ENCOUNTER 2021-12-06 06:23 | Outpatient (CLI) | payer BC ==
[~2021-12-06] VITALS: Ht 162.6 cm; Wt 59.9 kg
[~2021-12-06 06:23] MED LIST changes: +ACET-2267 PO; +ACET-93 PO; +DOCU-143 PO; +FERR325T24 PO; +IBUP-844 PO
[2021-12-06] MEDS ORDERED: MULT-1136 PO (08:50)
== END 2021-12-06 08:55 | disposition home or self-care (01) ==
LOC: PREOP 06:23
PROVIDERS: ATTEND Internal Medicine
DX: Z01.818 Encounter for other preprocedural examination (principal)

== ENCOUNTER 2021-12-08 08:07 | Day surgery (SDC) | payer BC ==
[~2021-12-08] VITALS: Ht 162 cm; Wt 59.9 kg
[~2021-12-08 08:07] MED LIST changes: +MULT-1136 PO
[2021-12-08] MEDS ORDERED: LACTATED RINGERS 1,000 ML IV STA (08:10)
[2021-12-08] MEDS ORDERED: LACTATED RINGERS 1,000 ML IV ONE (08:13)
[2021-12-08 08:20] VITALS: BP 109/65
--- NOTE | 2021-12-08 08:38 | Pre-Op Note & Conscious Sedat ---
Pre-Operative Progress Note H&P Reviewed The H&P was reviewed, patient examined and no changes noted. Date H&P Reviewed: Dec 08, 2021 Time H&P Reviewed: 08:37 Conscious Sedation Pre-Proced ASA Score 2 For ASA 3 and 4: Consider anesthesia and medical clearance. Also, for patients with a history of failed moderate sedation consider anesthesia. Airway Lungs Heart ASA score ASA 1: a normal healthy patient ASA 2: a patient with a mild systemic disease (mid diabetes, controlled hypertension, obesity ASA 3: a patient with a severe systemic disease that limits activity (angina, COPD, prior Myocardial infarction) ASA 4: a patient with an incapacitating disease that is a constant threat to life (CHF, renal failure) ASA 5: a moribund patient not expected to survive 24 hrs. (ruptured aneurysm) ASA 6: a declared brain- patient whose organs are being harvested. For emergent operations, add the letter E after the classification Mallampati Classification Grade 2 Sedation Plan Analgesia, Amnesia, Plan communicated to team members, Discussed options with patient/fam, Discussed risks with patient/fam The patient is an appropriate candidate to undergo the planned procedure, sedation, and anesthesia. The patient immediately re-assessed prior to indication. CHARMAINE ALANIS MD Dec 08, 2021 08:38
[2021-12-08] MEDS ORDERED: PROPOFOL INJECTION 50 ML IV ONE (08:42)
[2021-12-08 10:10] VITALS: BP 85/47
[2021-12-08 10:15] VITALS: BP 83/48
[2021-12-08 10:20] VITALS: BP 88/54
[2021-12-08 10:25] VITALS: BP 100/58
[2021-12-08 10:50] VITALS: BP 105/64
--- NOTE | 2021-12-08 20:06 | OPERATIVE REPORT ---
DATE OF SERVICE: COLONOSCOPY SUMMARY INDICATION FOR THE PROCEDURE: Rectal bleeding and iron deficiency anemia. DESCRIPTION OF PROCEDURE: The patient was placed in the left lateral decubitus position. Prior to undergoing colonoscopy, digital rectal evaluation was performed. Anal sphincter tone was normal and the perianal reflexes intact. Digital examination was compatible with small anterior rectocele. Otherwise, no other abnormalities were noted. The colonoscope was then inserted into the rectum and under direct visualization advanced to cecum. The cecum was identified by identification of ileocecal valve and cecal strap. Photographic documentation was obtained. Careful inspection was made as the colonoscope was withdrawn. Quality of prep was good. FINDINGS: There was no evidence for internal or external hemorrhoids and the rectum was unremarkable. Present at 35 cm proximal sigmoid colon was a pedunculated approximately 2 cm polyp on a long stalk. It was snared, basketed and removed in its entirety with several mL of estimated blood loss, which had ceased during visualization. The remainder of the sigmoid colon, descending colon, splenic flexure, transverse colon, hepatic flexure, ascending colon, and cecum were unremarkable. ASSESSMENT: One large pedunculated polyp on a long stalk was removed from the proximal sigmoid colon approximately 35 cm. As long as there is no evidence for malignancy, we will be advocating a 1-year surveillance colonoscopic interval. Digital rectal evaluation was compatible with a small anterior rectocele. No other abnormalities were noted on today's procedure under good prep conditions. I thank you for the referral of this pleasant lady. Job ID: [id number] DocumentID: [id number] Dictated Date: 12/08/2021 10:12:02 Sewer Connector Date: 12/08/2021 20:05:49 Dictated By: CHARMAINE ALANIS MD
== END 2021-12-08 11:00 | disposition home or self-care (01) ==
LOC: ENDO 08:07
PROVIDERS: ATTEND Internal Medicine
DX: D12.5 Benign neoplasm of sigmoid colon (principal); D50.9 Iron deficiency anemia, unspecified; Z87.891 Personal history of nicotine dependence
CPT/HCPCS: 84703; 88305

== ENCOUNTER → 2021-12-27 | Outpatient (CLI) | payer BC ==
[~2021-12-27] MED LIST changes: +BARIUM SUSPENSION 2.1% (VANILLA SILQ) 450 ML PO ONE; +CATHETER FLUSH 10 ML SYR IV PRN; +HOLD METFORMIN - RECEIVED CONTRAST 20 ML VIAL IV SCH; +IOHEXOL 350 MG/ML 100 ML (OMNIPAQUE 350) VIAL IV ONE; +NS 100 ML (IVPB) BAG IV ONE
--- NOTE | 2021-12-27 08:44 | Diagnostic Imaging Report ---
EXAMINATION: CT abdomen and pelvis with intravenous contrast. TECHNIQUE: Multiple contiguous axial images were obtained through the abdomen and pelvis after the uneventful administration of intravenous contrast. All CT scans use one or more of the following dose optimizing techniques: automated exposure control, MA and/or KvP adjustment based on patient size and exam type or iterative reconstruction. HISTORY: Colon cancer. COMPARISON: 09/28/2014 FINDINGS: Limited views of the lower thorax are unremarkable. The liver is normal without focal lesion. There is no biliary ductal dilation. There is a stone in the gallbladder. No cholecystitis. Pancreas is normal. Spleen is normal. Adrenal glands are normal. The kidneys are normal. There is no hydronephrosis. Urinary bladder is normal. Bowel is normal in caliber without obstruction or inflammation. No free fluid or air. No abdominal or pelvic lymphadenopathy. Aorta is normal in caliber without aneurysm. There are no suspicious osseous lesions. IMPRESSION: 1. No metastatic disease in the abdomen or pelvis. Dictated by: Dictated on workstation # [id number]
== END ==
LOC: RAD 07:37
PROVIDERS: ATTEND Internal Medicine
DX: C18.9 Malignant neoplasm of colon, unspecified (principal)
CPT/HCPCS: 74177

== ENCOUNTER → 2022-01-10 | Outpatient (CLI) | payer BC ==
--- NOTE | 2022-01-08 20:16 | HISTORY AND PHYSICAL ---
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 There was one foci of intramucosal adenocarcinoma. There was no evidence for systolic invasion and on photograph there is clear documentation of resection of the base of the stalk with appearance of about 2 cm from the head of the polyp to the base of the stalk. I suspect that there may have been some tearing that made it difficult for the pathologist to determine the length of the stalk. We discussed that considering that there was only 1 small foci of intramucosal involvement with no evidence for anything in the stalk, lymphatic spread is unlikely and any disease outside of polyp removed in its entirety is small. We will likely be proceeding with repeat colonoscopy in three months for surveillance provided that CEA level obtained today is normal and also provided that staging CT scan of the abdomen and pelvis reveals no evidence for lymphadenopathy or liver abnormality. The patient has felt well otherwise. She had no problems with colonoscopy per her report and there have been no bleeding issues. PHYSICAL EXAMINATION: GENERAL: Reveals an understandably anxious white female in no acute distress. VITAL SIGNS: Blood pressure 120/80. CHEST: Clear. CARDIOVASCULAR: Reveals regular rate and rhythm without murmur, S3 or S4. ABDOMEN: Soft, supple without mass, organomegaly or tenderness. EXTREMITIES: Reveal no cyanosis, clubbing or edema. FURTHER HISTORY: She is mother with an under the age of 1. ASSESSMENT The patient is set up for surveillance colonoscopy in three months pending the above negative, pending normal CT scan of the abdomen and pelvis and low CEA levels. We will rediscuss these issues with the patient and if she is not comfortable with holding off on resection in light of again normal above studies, we will then recommend referral for a segmental resection. Job ID: [id number] DocumentID: [id number] Dictated Date: 12/20/2021 16:47:19 Drying Frame Operator Date: 12/20/2021 17:14:08 Dictated By: CHARMAINE ALANIS MD
[~2022-01-10] MED LIST changes: -BARIUM SUSPENSION 2.1% (VANILLA SILQ) 450 ML PO ONE; -CATHETER FLUSH 10 ML SYR IV PRN; -HOLD METFORMIN - RECEIVED CONTRAST 20 ML VIAL IV SCH; -IOHEXOL 350 MG/ML 100 ML (OMNIPAQUE 350) VIAL IV ONE; -NS 100 ML (IVPB) BAG IV ONE
== END ==
LOC: CARD 13:30
PROVIDERS: ATTEND Family Medicine
DX: I35.1 Nonrheumatic aortic (valve) insufficiency (principal)
CPT/HCPCS: 93306

== ENCOUNTER 2022-03-12 07:53 | Emergency (ER) | payer BC ==
[~2022-03-12] VITALS: Ht 162 cm; Wt 54.0 kg
--- NOTE | 2022-03-12 08:22 | ED General ---
General Chief Complaint: Neurological Problems Stated Complaint: CHEST PAINS Source of Information: Patient Exam Limitations: No Limitations History of Present Illness Date Seen by Provider: Mar 12, 2022 Time Seen by Provider: 08:06 Initial Comments Patient is a 41-year-old female who presents to the emergency department today with a chief complaint of generalized malaise, fatigue, weakness. She had a syncopal episode witnessed by her this morning as they were trying to get out the door to come to the emergency room of about 10 to 15 seconds. He states she hit the back of her head on a tile floor. She does not have any pain in her head currently, no headache. She has had decreased appetite over the last several days. She is actively breast-feeding her 9-month-old. She has had a lot of "gas". She is a little bit nauseous. She complains of epigastric lower chest pain. Nothing makes it any worse, nothing makes it any better. She feels little short of breath. She states her Fitbit has been telling her that her heart rate has been reaching high as 140-150. She states during the night it read that she worked out for 22 minutes but she was sleeping. She has been not feeling well for 2 or 3 days. She is COVID vaccinated without boosters. She was at a Halloween alliance party on Saturday and did not feel well that day. She states her urine "smells" a little funny but denies dysuria, urgency or frequency. She is not on any control currently and is sexually active. She had a colonoscopy for persistently bloody stools about 3 months ago and had a polyp removed that was found to be cancerous. She is awaiting a repeat colonoscopy the first week of March. She is not on chemotherapy. Her states she did have a fever to 102 yesterday. She states she felt feverish during the night last night as well. All other review of systems reviewed and negative except as stated Timing/Duration: 3-4 Days Severity: Moderate Associated Systoms: Fever/Chills, Loss of Appetite, Malaise, Nausea/Vomiting, Shortness of Air, Syncope, Weakness Allergies and Home Medications Allergies Coded Allergies: No Known Drug Allergies (Unverified , 06/19/21) Patient Home Medication List Home Medication List Reviewed: Yes Acetaminophen (Tylenol Extra Strength) 500 Mg Tablet, 1,000 MG PO Q8H Prescribed by: Amartha N Keller on 06/24/21 1204 Docusate Sodium (Colace) 100 Mg Capsule, 100 MG PO BID Prescribed by: Ollie Rangel on 06/24/21 1204 Ferrous Sulfate (Ferrous Sulfate) 325 Mg Tablet, 325 MG PO BID Prescribed by: Ollie Rangel on 06/24/21 1208 Ibuprofen (Ibuprofen) 600 Mg Tablet, 600 MG PO Q6H Prescribed by: Ollie Rangel on 06/24/21 1204 Multivitamin (Multivitamin) 1 Each Tablet, 1 EACH PO, (Reported) Entered as Reported by: RONALD ARAUJO on 12/06/21 0850 [Magnesium] , UD, (Reported) Entered as Reported by: OMEGA HERNANDEZ on 06/19/21 132 [Vitamin B12] , UD, (Reported) Entered as Reported by: OMEGA HERNANDEZ on 06/19/211326 Review of Systems Review of Systems Constitutional: see HPI, malaise EENTM: no symptoms reported Respiratory: short of breath Cardiovascular: no symptoms reported Gastrointestinal: abdominal pain Genitourinary: other ("funny smell" to urine) Musculoskeletal: no symptoms reported Skin: no symptoms reported Psychiatric/Neurological: Other (syncope) All Other Systems Reviewed Negative Unless Noted: Yes Past Qltnysi-Dxcrqp-Voubfk Hx Immunizations Up To Date Tetanus Booster (TDap): Less than 5yrs First/Initial COVID19 Vaccinat: july 2020 Second COVID19 Vaccination Ernesto: august 2020 Third COVID19 Vaccination Date: july 2020 Seasonal Allergies Seasonal Allergies: No Past Medical History Surgeries: Yes (wisdom teeth, scar removal, C SECTION X2, SALIVARY STONE REM FREDDY) Section Respiratory: No Currently Using CPAP: No Currently Using BIPAP: No Cardiac: Yes Heart Murmur Neurological: No Reproductive Disorders: No Genitourinary: No Gastrointestinal: Yes (GALL STONES) Chronic Constipation Musculoskeletal: Yes (LYMES) Endocrine: No HEENT: No Cancer: No Psychosocial: No Integumentary: Yes (Lyme disease) Blood Disorders: Yes (anemia w/preg) Family Medical History FH: liver cancer GRANDMOTHER, PATERNAL Thyroid disease GRANDMOTHER, MATERNAL Physical Exam Vital Signs Vital Signs - First Documented 03/12/22 07:53 Temp 37.2 Pulse 80 Resp 16 B/P (MAP) 101/80 (87) Pulse Ox 96 O2 Delivery Room Air Capillary Refill : Height, Weight, BMI Height: 5'4.00" Weight: 137lbs. 0.0oz. [id number]; 22.82 BMI Method: General Appearance: No Apparent Distress, WD/WN Eyes: Bilateral Eye Normal Inspection, Bilateral Eye PERRL, Bilateral Eye EOMI HEENT: PERRL/EOMI Neck: Normal Inspection, Non Tender, Supple Respiratory: Lungs Clear, Normal Breath Sounds, No Accessory Muscle Use, No Respiratory Distress Cardiovascular: Regular Rate, Rhythm (80's), Normal Peripheral Pulses Gastrointestinal: Normal Bowel Sounds, Non Tender, Soft Extremity: Normal Inspection, Normal Range of Motion, Non Tender, No Calf T enderness Neurologic/Psychiatric: Alert, Oriented x3, No Motor/Sensory Deficits, Normal Mood/Affect, incident response manager II-XII Norm as Tested Skin: Normal Color, Warm/Dry, Pallor (slightly pale) Progress/Results/Core Measures Suspected Sepsis SIRS Temperature: Pulse: Respiratory Rate: Laboratory Tests 03/12/22 08:05: White Blood Count 7.1 Blood Pressure / Mean: Laboratory Tests 03/12/22 08:05: Creatinine 0.81, INR Comment 1.1, Platelet Count 296, Total Bilirubin 0.8 Results/Orders Lab Results Laboratory Tests Test 03/12/22 08:05 03/12/22 08:32 Range/Units White Blood Count 7.1 4.3-11.0 10^3/uL Red Blood Count 4.27 3.80-5.11 10^6/uL Hemoglobin 13.0 11.5-16.0 g/dL Hematocrit 40 35-52 % Mean Corpuscular Volume 93 80-99 fL Mean Corpuscular Hemoglobin 30 25-34 pg Mean Corpuscular Hemoglobin Concent 33 32-36 g/dL Red Cell Distribution Width 12.2 10.0-14.5 % Platelet Count 296 130-400 10^3/uL Mean Platelet Volume 9.8 9.0-12.2 fL Immature Granulocyte % (Auto) 0 % Neutrophils (%) (Auto) 74 42-75 % Lymphocytes (%) (Auto) 18 12-44 % Monocytes (%) (Auto) 8 0-12 % Eosinophils (%) (Auto) 0 0-10 % Basophils (%) (Auto) 0 0-10 % Neutrophils # (Auto) 5.3 1.8-7.8 10^3/uL Lymphocytes # (Auto) 1.3 1.0-4.0 10^3/uL Monocytes # (Auto) 0.5 0.0-1.0 10^3/uL Eosinophils # (Auto) 0.0 0.0-0.3 10^3/uL Basophils # (Auto) 0.0 0.0-0.1 10^3/uL Immature Granulocyte # (Auto) 0.0 0.0-0.1 10^3/uL Prothrombin Time 14.2 12.2-14.7 SEC INR Comment 1.1 0.8-1.4 Activated Partial Thromboplast Time 28 24-35 SEC Sodium Level 139 135-145 MMOL/L Potassium Level 3.6 3.6-5.0 MMOL/L Chloride Level 105 98-107 MMOL/L Carbon Dioxide Level 20 L 21-32 MMOL/L Anion Gap 14 5-14 MMOL/L Blood Urea Nitrogen 11 7-18 MG/DL Creatinine 0.81 0.60-1.30 MG/DL Estimat Glomerular Filtration Rate 93 BUN/Creatinine Ratio 14 Glucose Level 134 H 70-105 MG/DL Calcium Level 9.2 8.5-10.1 MG/DL Corrected Calcium 9.0 8.5-10.1 MG/DL Magnesium Level 2.0 1.6-2.4 MG/DL Total Bilirubin 0.8 0.1-1.0 MG/DL Aspartate Amino Transf (AST/SGOT) 17 5-34 U/L Alanine Aminotransferase (ALT/SGPT) 11 0-55 U/L Alkaline Phosphatase 100 40-136 U/L Myoglobin 25.4 10.0-92.0 NG/ML Troponin I < 0.028 <0.028 NG/ML Total Protein 7.7 6.4-8.2 GM/DL Albumin 4.2 3.2-4.5 GM/DL Influenza Type A (RT-PCR) Not Detected Not Detecte Influenza Type B (RT-PCR) Not Detected Not Detecte SARS-CoV-2 RNA (RT-PCR) Not Detected Not Detecte Urine Color YELLOW Urine Clarity CLEAR Urine pH 6.0 5-9 Urine Specific [place] 1.020 1.016-1.022 Urine Protein NEGATIVE NEGATIVE Urine Glucose (UA) NEGATIVE NEGATIVE Urine Ketones 1+ H NEGATIVE Urine Nitrite NEGATIVE NEGATIVE Urine Bilirubin NEGATIVE NEGATIVE Urine Urobilinogen 0.2 < = 1.0 MG/DL Urine Leukocyte Esterase NEGATIVE NEGATIVE Urine RBC (Auto) TRACE-I H NEGATIVE Urine RBC RARE /HPF Urine WBC RARE /HPF Urine Squamous Epithelial Cells 2-5 /HPF Urine Crystals NONE /LPF Urine Bacteria NEGATIVE /HPF Urine Casts PRESENT /LPF Urine Hyaline Casts RARE /LPF Urine Mucus SMALL H /LPF Urine Culture Indicated NO My Orders Orders - LARISSA ALCANTAR MD Ekg Tracing (03/12/22 08:00) Cbc With Automated Diff (03/12/22 08:24) Magnesium (03/12/22 08:24) Chest 1 View, Ap/Pa Only (03/12/22 08:24) Comprehensive Metabolic Panel (03/12/22 08:24) Myoglobin Serum (03/12/22 08:24) Protime With Inr (03/12/22 08:24) Partial Thromboplastin Time (03/12/22 08:24) O2 (03/12/22 08:24) Monitor-Rhythm Ecg Trace Only (03/12/22 08:24) Lipid Panel (03/13/22 06:00) Ed Iv/Invasive Line Start (03/12/22 08:24) Troponin I [place] (03/12/22 08:24) Ua Culture If Indicated (03/12/22 08:24) Urine Bedside (03/12/22 08:24) Covid 19 Inhouse Test (03/12/22 08:24) Influenza A And B By Pcr (03/12/22 08:24) Isolation Central Supply Req (03/12/22 08:24) Ns Iv 1000 Ml (Sodium Chloride 0.9%) (03/12/22 08:30) Ondansetron Injection (Zofran Injectio (03/12/22 08:30) Vital Signs/I&O 03/12/22 07:53 Temp 37.2 Pulse 80 Resp 16 B/P (MAP) 101/80 (87) Pulse Ox 96 O2 Delivery Room Air Capillary Refill : Progress Note : Time: 11:06 Progress Note Patient reevaluated after labs and imaging returned, her vital signs remained stable. She still feels a little "puny". No significant complaints of chest pain, shortness of breath or abdominal pain. We discussed her "gassiness". I recommended Gas-X periodically throughout the day up to 4-6 times daily as well as a daily PPI. I advised that these are safe in . Advised close follow-up with her primary care physician as well as with her cancer doctor and Dr. Isaac. Return precautions discussed. Likely this is just a nonspecific viral syndrome as her 5-year-old had 1 day of illness a week ago. She has no clinical or objective findings for sepsis,/pneumonia/COVID. ECG Initial ECG Impression Date: Mar 12, 2022 Initial ECG Impression Time: 08:10 Initial ECG Rate: 79 Initial ECG Rhythm: Normal Sinus Initial ECG Intervals: Normal Comment Nonspecific ST-T wave changes inferiorly with flattening Departure Impression Primary Impression: Viral syndrome Disposition: 01 HOME, SELF-CARE Condition: Stable Departure-Patient Inst. Decision time for Depature: 11:07 Referrals: SERGIO CASTILLO DO (PCP/Family) Primary Care Physician Patient Instructions: Viral Syndrome (DC) Add. Discharge Instructions: Please continue to drink plenty of fluids to stay well-hydrated Take gtpy-rdf-wupyrar Gas-X, 4-6 times daily for your symptoms. You might also consider an xiaw-mda-paqtndo acid operations team leader such as Pepcid or Zantac. Both of these are safe while breast-feeding. Take this daily for 2 weeks. You might not see improvement in symptoms for 24 to 48 hours. If you develop high fever, worsening abdominal pain, vomiting or any other emergent, concerning symptoms please return to the emergency room for reevaluation. Copy Copies To 1: SERGIO CASTILLO KATHRYN M MD Mar 12, 2022 08:22
[2022-03-12] MEDS ORDERED: ONDANSETRON 4 MG/2 ML (SDV) Z0FRAN IVP ONE (08:30)
[2022-03-12] MEDS ORDERED: NS IV 1000 ML 1,000 ML IV SCH (08:30)
[2022-03-12 08:34] LABS: BASOPHILS % (AUTO) 0 % (0-10); EOSINOPHILS % (AUTO) 0 % (0-10); HEMATOCRIT 40 % (35-52); LYMPHOCYTES # (AUTO) 1.3 10^3/uL (1.0-4.0); LYMPHOCYTES % (AUTO) 18 % (12-44); MEAN CORPUSCULAR HEMOGLOBIN 30 pg (25-34); MEAN CORPUSCULAR HGB CONC 33 g/dL (32-36); MEAN CORPUSCULAR VOLUME 93 fL (80-99); MEAN PLATELET VOLUME 9.8 fL (9.0-12.2); MONOCYTES # (AUTO) 0.5 10^3/uL (0.0-1.0); MONOCYTES % (AUTO) 8 % (0-12); NEUTROPHILS # (AUTO) 5.3 10^3/uL (1.8-7.8); NEUTROPHILS % (AUTO) 74 % (42-75); PLATELET COUNT 296 10^3/uL (130-400); WHITE BLOOD COUNT 7.1 10^3/uL (4.3-11.0)
[2022-03-12 08:36] LABS: ALBUMIN 4.2 GM/DL (3.2-4.5)
[2022-03-12 08:37] LABS: POTASSIUM 3.6 MMOL/L (3.6-5.0)
[2022-03-12 08:38] LABS: CALCIUM 9.2 MG/DL (8.5-10.1)
[2022-03-12 08:39] LABS: INR 1.1 (0.8-1.4); PROTHROMBIN TIME PATIENT 14.2 SEC (12.2-14.7); TOTAL PROTEIN 7.7 GM/DL (6.4-8.2)
[2022-03-12 08:40] LABS: BILIRUBIN,URINE NEGATIVE (NEGATIVE); CLARITY,URINE CLEAR; COLOR,URINE YELLOW; GLUCOSE, URINE (UA) NEGATIVE (NEGATIVE); KETONES,URINE 1+ (NEGATIVE); LEUKOCYTE ESTERASE ,URINE NEGATIVE (NEGATIVE); NITRITE,URINE NEGATIVE (NEGATIVE); PROTEIN,URINE NEGATIVE (NEGATIVE)
[2022-03-12 08:41] LABS: BILIRUBIN,TOTAL 0.8 MG/DL (0.1-1.0)
[2022-03-12 08:43] LABS: CREATININE SERUM 0.81 MG/DL (0.60-1.30)
[2022-03-12 08:48] LABS: BACTERIA,URINE NEGATIVE /HPF; HYALINE CASTS, URINE RARE /LPF; RBC,URINE RARE /HPF; WBC,URINE RARE /HPF
--- NOTE | 2022-03-12 09:27 | Diagnostic Imaging Report ---
INDICATION: Chest pain. TECHNIQUE: Single view chest 8:52 AM. CORRELATION STUDY: None FINDINGS: The heart size, mediastinal configuration and pulmonary vascularity are within normal limits. The lungs are clear with no consolidating infiltrate. There is no significant effusion or pneumothorax. IMPRESSION: 1. Negative appearing single view chest. Dictated by: Dictated on workstation # [id number]
[2022-03-12 11:23] VITALS: BP 96/63
== END 2022-03-12 11:23 | disposition home or self-care (01) ==
LOC: EDUNIT# 07:53 → ER 07:55
DX: B34.9 Viral infection, unspecified (principal); Z20.822 Contact with and (suspected) exposure to COVID-19
CPT/HCPCS: 36415; 71045; 80053; 81000; 83735; 83874; 84484; 84703; 85025; 85610; 85730; 87636; 93005; 93041

== ENCOUNTER 2022-03-14 05:31 | Outpatient (CLI) | payer BC ==
[~2022-03-14] VITALS: Ht 162.6 cm; Wt 59.9 kg
[2022-03-14] MEDS ORDERED: NF-VITD400 PO (15:25)
== END 2022-03-14 15:28 | disposition home or self-care (01) ==
LOC: PREOP 05:31
PROVIDERS: ATTEND Internal Medicine
DX: Z01.818 Encounter for other preprocedural examination (principal)

== ENCOUNTER 2022-03-23 07:15 | Day surgery (SDC) | payer BC ==
[~2022-03-23] VITALS: Ht 162.6 cm; Wt 59.9 kg
[~2022-03-23 07:15] MED LIST changes: +NF-VITD400 PO
[2022-03-23] MEDS ORDERED: LACTATED RINGERS 1,000 ML IV STA (07:18)
[2022-03-23 07:29] VITALS: BP 102/60
[2022-03-23] MEDS ORDERED: PROPOFOL INJECTION 50 ML IV ONE (07:49)
--- NOTE | 2022-03-23 08:00 | Pre-Op Note & Conscious Sedat ---
Pre-Operative Progress Note Date H&P Reviewed: Mar 23, 2022 Time H&P Reviewed: 07:45 History & Physical: H&P Reviewed, Patient Examed, No changes noted Pre-Op Diagnosis: follow up colon cancer Conscious Sedation Pre-Proced ASA Score 1 For ASA 3 and 4: Consider anesthesia and medical clearance. Also, for patients with a history of failed moderate sedation consider anesthesia. Airway Lungs Heart ASA score ASA 1: a normal healthy patient ASA 2: a patient with a mild systemic disease (mid diabetes, controlled hypertension, obesity ASA 3: a patient with a severe systemic disease that limits activity (angina, COPD, prior Myocardial infarction) ASA 4: a patient with an incapacitating disease that is a constant threat to life (CHF, renal failure) ASA 5: a moribund patient not expected to survive 24 hrs. (ruptured aneurysm) ASA 6: a declared brain- patient whose organs are being harvested. For emergent operations, add the letter E after the classification Mallampati Classification Grade 2 Sedation Plan Analgesia, Amnesia, Plan communicated to team members, Discussed options with patient/fam, Discussed risks with patient/fam The patient is an appropriate candidate to undergo the planned procedure, sedation, and anesthesia. The patient immediately re-assessed prior to indication. CHARMAINE ALANIS MD Mar 23, 2022 08:00
[2022-03-23 08:35] VITALS: BP 82/48
--- NOTE | 2022-03-23 08:38 | Progress Note-Post Operative ---
Post-Procedure Note Physician (s)/Inclusion Special Educator (s) Physician CHARMAINE ALANIS MD Pre-Procedure Diagnosis Pre-Procedure Diagnosis: follow up colon cancer Post-Procedure Diagnosis Post-operative diagnosis: Patient underwent surveillance colonoscopy due to history of colon cancer 3 months ago underwent snare resection of a large pedunculated polyp pathology revealing likely invasive adenocarcinoma located proximal sigmoid colon 35 cm from the anal verge. The patient was placed in the left lateral decubitus position. Prior to undergoing colonoscopy digital rectal evaluation was performed. Anal sphincter tone was normal and the perianal reflexes intact. No abnormalities are noted on digital inspection anal canal or distal rectal vault. The colonoscope was then inserted into the rectum and under direct physician advanced to the cecum. The cecum was identified by identification of the ileocecal valve cecal strap and the appendiceal orifice. Photographic documentation was obtained. A careful inspection was made as the colonoscope was withdrawn. The quality of the prep was good. Findings: There are no evidence for internal or external hemorrhoids and the rectum was unremarkable. Mild diverticular disease confined to the sigmoid colon was present. There was no evidence for residual polyp tissue in the previously snared proximal sigmoid cancerous polyp. The descending colon splenic flexure transverse colon hepatic flexure ascending colon and cecum were unremarkable. Assessment: There is no endoscopic evidence for any remaining polyp tissue from the previously snared proximal sigmoid pedunculated polyp that contained adenocarcinoma. Again noted was mild diverticular disease confined to the sigmoid colon without evidence for diverticulitis. We will set the patient up for repeat surveillance colonoscopy in 1 year. Patient reassured by today's findings. Sincerely, Charmaine Alanis MD. CHARMAINE ALANIS MD Mar 23, 2022 08:38
[2022-03-23 08:45] VITALS: BP 89/83
[2022-03-23 09:01] VITALS: BP 89/83
--- NOTE | 2022-03-23 11:27 | Anesthesia-General Post-Op ---
MAC Patient Condition Mental Status/LOC: Same as Preop Cardiovascular: Satisfactory Nausea/Vomiting: Absent Respiratory: Satisfactory Pain: Controlled Complications: Absent Post Op Complications Complications None Follow Up Care/Instructions Patient Instructions None needed. Anesthesiology Discharge Order Discharge Order Patient was doing well this morning after the procedure with no complaints, stable vital signs, no apparent adverse anesthesia problems. No complications reported per nursing. JENNIFER FSOS DO Mar 23, 2022 11:27
--- NOTE | 2022-03-27 11:40 | HISTORY AND PHYSICAL ---
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 There was one foci of intramucosal adenocarcinoma. There was no evidence for systolic invasion and on photograph there is clear documentation of resection of the base of the stalk with appearance of about 2 cm from the head of the polyp to the base of the stalk. I suspect that there may have been some tearing that made it difficult for the pathologist to determine the length of the stalk. We discussed that considering that there was only 1 small foci of intramucosal involvement with no evidence for anything in the stalk, lymphatic spread is unlikely and any disease outside of polyp removed in its entirety is small. We will likely be proceeding with repeat colonoscopy in three months for surveillance provided that CEA level obtained today is normal and also provided that staging CT scan of the abdomen and pelvis reveals no evidence for lymphadenopathy or liver abnormality. The patient has felt well otherwise. She had no problems with colonoscopy per her report and there have been no bleeding issues. PHYSICAL EXAMINATION: GENERAL: Reveals an understandably anxious white female in no acute distress. VITAL SIGNS: Blood pressure 120/80. CHEST: Clear. CARDIOVASCULAR: Reveals regular rate and rhythm without murmur, S3 or S4. ABDOMEN: Soft, supple without mass, organomegaly or tenderness. EXTREMITIES: Reveal no cyanosis, clubbing or edema. FURTHER HISTORY: She is mother with an infant under the age of 1. ASSESSMENT The patient is set up for surveillance colonoscopy in three months pending the above negative, pending normal CT scan of the abdomen and pelvis and low CEA levels. We will rediscuss these issues with the patient and if she is not comfortable with holding off on resection in light of again normal above studies, we will then recommend referral for a segmental resection. Job ID: [id number] DocumentID: [id number] Dictated Date: 12/20/2021 16:47:19 Worship Director Date: 12/20/2021 17:14:08 Dictated By: CHARMAINE ALANIS MD <Dictated by CHARMAINE ALANIS MD> <Electronically signed by CHARMAINE ALANIS MD> 01/10/22 1007 MTDD
== END 2022-03-23 09:18 | disposition home or self-care (01) ==
LOC: ENDO 07:15
PROVIDERS: ATTEND Internal Medicine
DX: Z12.11 Encounter for screening for malignant neoplasm of colon (principal); Z87.891 Personal history of nicotine dependence
CPT/HCPCS: 84703

== ENCOUNTER 2022-12-13 15:20 | Outpatient (RCR) | payer BC | END 2022-12-17 | disposition home or self-care (01) | DX: M54.2 Cervicalgia (principal) ==

== ENCOUNTER 2023-01-11 13:00 | Outpatient (RCR) | payer BC | END 2023-01-17 | disposition home or self-care (01) | DX: M54.2 Cervicalgia (principal) ==

== ENCOUNTER 2023-02-26 13:03 | Outpatient (RCR) | payer BC | END 2023-03-19 | disposition home or self-care (01) | DX: M54.2 Cervicalgia (principal) ==

== ENCOUNTER 2023-04-03 14:19 | Outpatient (RCR) | payer BC | END 2023-04-18 | disposition home or self-care (01) | DX: M54.2 Cervicalgia (principal) ==

== ENCOUNTER 2023-04-24 05:36 | Outpatient (CLI) | payer BC ==
[~2023-04-24] VITALS: Ht 162.6 cm; Wt 58.1 kg
[2023-04-24] MEDS ORDERED: [UNRECOGNIZED DRUG - CODE] PO (14:08)
[2023-04-24] MEDS ORDERED: CALC-696 PO (14:08)
[2023-04-24] MEDS ORDERED: MECO10005 PO (14:08)
== END 2023-04-24 14:20 | disposition home or self-care (01) ==
LOC: PREOP 05:36
PROVIDERS: ATTEND Internal Medicine
DX: Z01.818 Encounter for other preprocedural examination (principal)